=== PATIENT | male | born 1930 | race Caucasian/White ===

== ENCOUNTER 2017-02-07 17:40 | Inpatient (IN) | payer MEDICARE ==
[2017-02-07] MEDS ORDERED: BISACODYL 10 MG SUPP RECTAL PRN (18:00)
[2017-02-07] MEDS ORDERED: NALOXONE HCL 0.4 MG/ML AMP IV PRN (18:00)
[2017-02-07] MEDS ORDERED: ONDANSETRON HCL 4 MG/2 ML VIAL IVP PRN (18:00)
[2017-02-07] MEDS ORDERED: SENNOSIDES 8.6 MG TAB PO PRN (18:00)
[2017-02-07] MEDS ORDERED: MAGNESIUM HYDROXIDE SUSP 30 ML CUP PO PRN (18:00)
[2017-02-07] MEDS ORDERED: LACTULOSE SYRUP 20 GM/30 ML CUP PO PRN (18:00)
[2017-02-07] MEDS ORDERED: TEMAZEPAM 15 MG CAP PO PRN (18:00)
[2017-02-07] MEDS ORDERED: SODIUM CHLORIDE 0.9% FLUSH 10 ML FLUSH IV FLUSH PRN (18:00)
[2017-02-07] MEDS ORDERED: ACETAMINOPHEN 325 MG TAB PO PRN (18:00)
[2017-02-07 18:03] VITALS: BP 139/75; PULSE 78; RESP 18; TEMP 97.8; O2SAT 94
[2017-02-07] MEDS ORDERED: DEXTROSE 50% IN WATER 50 ML VIAL(D50) IV PRN (18:30)
[2017-02-07] MEDS ORDERED: GLUCAGON 1 MG/ML VIAL OTHER PRN (18:30)
--- NOTE | 2017-02-07 18:42 | HHI.HP ---
HPI Service [facility] Hospitalists Primary Care Physician Unknown Admission Diagnosis Diagnoses: Chief Complaint: atrial fibrillation with RVR Travel History International Travel<30 Days: No Contact w/Intl Traveler <30 Da: No History of Present Illness Written by Mounika Nieves, acting as scribe for Dr. Martínez on 02/07/17 at 18:28. This is an 86 yr old male with a PMHX significant for atrial fibrillation s/p AICD, on anticoagulation, hypertension, DM, BPH and hyperlipidemia who was recently admitted at [facility] with several days of left lower extremity swelling. He denied any subjective fever, chills, nausea or vomiting. He was found to have an abscess and underwent an I&D followed by IV antibiotics and was later transitioned to oral antibiotics. Cultures grew E Coli. He was subsequently found to be in atrial fibrillation with RVR and started on Cardizem drip. Patient was seen in consultation by Cardiology. Cardiology recommended possible ablation and patient has been transferred to [place] for ablation. Patient is asymptomatic presently, he denies any chest pain, shortness of breathing, lightheadedness dizziness. Patient niece who is a nurse stated that patient has always been asymptomatic when his atrial separation with RVR. She also stated that his left lower extremity wound looks a lot better. spoke to Dr. Farmer patient's awning erector over the phone and he stated that patient is scheduled for an ablation tomorrow afternoon and to continue his Plavix and tonight's dose of pradaxa but to hold morning dose. All other review of symptoms reviewed and negative. Review of Systems Except as stated in HPI: all other systems reviewed are Neg Past Family Social History Past Medical History Atrial fibrillation with RVR Cardiomyopathy CHF HTN BPH DM Hyperlipidemia Hypothyroidism CKD stage 3 Past Surgical History s/p AICD cardiac stent implant 2013 Hernia repair Reported Medications ASA 81mg one po daily Lipitor 10mg po daily Cefuroxime 250mg 2 tab po BID Vitamin D3 5000 units po every three days Plavix 75mg po daily Pradaxa 150mg 1 cap po BID Docusate 100mg one po prn constipation Tikosyn 125mcg po BID Lasix 40mg po daily Diovan/HCT 320/25mg 1 tab po daily Insulin Levothyroxine 25mcg 1 tab po daily Lorazepam 0.5mg po TID prn anxiety Metolazone 2.5mg 1 tab po daily Metoprolol 50mg po BID Multivitamin daily Zofran 4mg prn N/V Protonix 40mg po daily Lactinex 250mg po BID Tamsulosin 0.4mg po daily CoQ10 300mg po daily Allergies: Coded Allergies: No Known Allergies (Unverified , 02/07/17) Family History reviewed family history and not relevant to this admission. Social History Patient is former smoker. Physical Exam Vital Signs Vital Signs Date Time Temp Pulse Resp B/P Pulse Ox O2 Delivery O2 Flow Rate FiO2 02/07/17 18:03 97.8 78 18 139/75 94 Physical Exam GENERAL: This is a well-nourished, well-developed patient, in no apparent distress. SKIN: right lower extremity with open wound with changes in coloration suggesting stasis. HEAD: Atraumatic. Normocephalic. No temporal or scalp tenderness. EYES: Pupils equal round and reactive. Extraocular motions intact. No scleral icterus. No injection or drainage. ENT: Nose without bleeding, purulent drainage or septal hematoma. Throat without erythema, tonsillar hypertrophy or exudate. Uvula midline. Airway patent. NECK: Trachea midline. No JVD or lymphadenopathy. Supple, nontender, no meningeal signs. CARDIOVASCULAR: irregular rate and rhythm without murmurs, gallops, or rubs. RESPIRATORY: Clear to auscultation. Breath sounds equal bilaterally. No wheezes , rales, or rhonchi. GASTROINTESTINAL: Abdomen soft, non-tender, nondistended. No hepato-splenomegaly , or palpable masses. No guarding. MUSCULOSKELETAL: Extremities without clubbing, cyanosis, or edema. No joint tenderness, effusion, or edema noted. No calf tenderness. Negative Homans sign bilaterally. NEUROLOGICAL: Awake and alert. Cranial nerves II through XII intact. Motor and sensory grossly within normal limits. Five out of 5 muscle strength in all muscle groups. Normal speech. Assessment and Plan Assessment and Plan 86yo male transferred from [facility] with atrial fibrillation RVR for cardiac ablation. Atrial fibrillation with RVR - Consult Dr. Alcantara who is familiar with the patient and plans to do ablation procedure tomorrow -d/w Dr. Farmer over the phone patient's Link Fabric Machine Operator who was caring for patient in [facility] and stated to continue Plavix and give night dose of Pradaxa but to hold morning dose. - continuous cardiac telemetry - NPO after MN - Continue on Tikosyn - Continue on Metoprolol 50mg po BID Abscess/Cellulitis of the left leg - s/p I&D at [facility] and completed course of IV antibiotics -improving. -continue with daily wound changes. - Continue on po antibiotics Ceftin 500mg po BID DM - accuchecks - ISS -will hold Lantus at the moment since patient will be NPO. Hypothyroidism/cardiomyopathy/HTN/HLP/NSVTs/p AICD -resume home medication. DVT prophylaxis -Patient is on Pradaxa. Patient's niece, her nurse, nephew are at the bedside during the interview. Code Status Discussed with patient and his family members and his nurse who were present in regards to his CODE STATUS and patient stated that he wants to be a DO NOT RESUSCITATE. Discussed Condition With patient, his niece and nephew, his nurse Physician Certification 2 Midnight Certification Type: Admission for Inpatient Services Order for Inpatient Services The services are ordered in accordance with Medicare regulations or non- Medicare payer requirements, as applicable. In the case of services not specified as inpatient-only, they are appropriately provided as inpatient services in accordance with the 2-midnight benchmark. Estimated LOS (days): 2 2 days is the estimated time the patient will need to remain in the hospital, assuming treatment plan goals are met and no additional complications. Post-Hospital Plan: Home Mounika Nieves Feb 07, 2017 18:42
[2017-02-07 19:00] VITALS: PULSE 93
[2017-02-07] MEDS ORDERED: ASPI81CH CHEW (19:24)
[2017-02-07] MEDS ORDERED: PLAV75TA29 PO (19:24)
[2017-02-07] MEDS ORDERED: CEFU1TAB20 PO (19:24)
[2017-02-07] MEDS ORDERED: CHOL1CAP13 PO (19:24)
[2017-02-07] MEDS ORDERED: LIPI10TA PO (19:24)
[2017-02-07] MEDS ORDERED: FURO40TA PO (19:25)
[2017-02-07] MEDS ORDERED: PRAD150C PO (19:25)
[2017-02-07] MEDS ORDERED: TYLE325T PO (19:25)
[2017-02-07] MEDS ORDERED: DOCU100C PO (19:25)
[2017-02-07] MEDS ORDERED: DOFE125 PO (19:25)
[2017-02-07] MEDS ORDERED: METO2.5T PO (19:25)
[2017-02-07] MEDS ORDERED: LEVO25TA4 PO (19:25)
[2017-02-07] MEDS ORDERED: LORA-373 PO (19:25)
[2017-02-07] MEDS ORDERED: LANTINJ SQ (19:25)
[2017-02-07] MEDS ORDERED: TAMS0.4C4 PO (19:25)
[2017-02-07] MEDS ORDERED: LEVA0.637 INH (19:25)
[2017-02-07] MEDS ORDERED: MULT1TAB46 (19:25)
[2017-02-07] MEDS ORDERED: UBIQ1CAP4 (19:25)
[2017-02-07] MEDS ORDERED: SACC250C3 (19:25)
[2017-02-07] MEDS ORDERED: PROT40TA PO (19:25)
[2017-02-07] MEDS ORDERED: DIOV320T6 PO (19:25)
[2017-02-07] MEDS ORDERED: NOVOLOGP2 SQ (19:25)
[2017-02-07] MEDS ORDERED: ONDA4INJ2 IV PUSH (19:25)
[2017-02-07] MEDS ORDERED: METO50TA PO (19:25)
[2017-02-07] MEDS ORDERED: ONDANSETRON HCL 4 MG/2 ML VIAL IV PUSH PRN (19:45)
[2017-02-07] MEDS ORDERED: DOCUSATE SODIUM 100 MG CAP PO PRN (19:45)
[2017-02-07] MEDS ORDERED: LORazepam 0.5 MG TAB PO PRN (19:45)
[2017-02-07 20:00] VITALS: BP 129/78; PULSE 80; PULSE 83; RESP 16; TEMP 98; O2SAT 96
[2017-02-07] MEDS: RESP: ALBUTEROL 1.25 MG/3 ML NEB (SCH) NEB (20:00)
[2017-02-07 20:42] LABS: HEMATOCRIT 30.6 % (39.0-51.0); MEAN CELL VOLUME 95.3 FL (80.0-100.0); MEAN CORPUSCULAR HEMOGLOBIN 30.8 PG (27.0-34.0); MEAN CORPUSCULAR HGB CONC 32.3 % (32.0-36.0); PLATELET COUNT 185 TH/MM3 (150-450); RED BLOOD COUNT 3.21 MIL/MM3 (4.50-5.90); RED CELL DISTRIBUTION WIDTH 20.9 % (11.6-17.2); REVIEW FLAG FINAL; WHITE BLOOD COUNT 6.4 TH/MM3 (4.0-11.0)
[2017-02-07 21:00] VITALS: PULSE 74
[2017-02-07] MEDS ORDERED: DABIGATRAN ETEXILATE 150 MG CAP PO SCH (21:00)
[2017-02-07] MEDS: DOCUSATE SODIUM 50 MG/SENNA 8.6 MG TAB PO SCH (21:00)
[2017-02-07] MEDS: DOFETILIDE 125 MCG CAP PO SCH (21:00)
[2017-02-07 21:01] LABS: BICARBONATE 27.3 MEQ/L (21.0-32.0); MAGNESIUM 2.1 MG/DL (1.5-2.5); POTASSIUM 4.6 MEQ/L (3.5-5.1)
[2017-02-07 22:00] VITALS: PULSE 80
[2017-02-07] MEDS: METOPROLOL TARTRATE 50 MG TAB PO SCH (22:24)
[2017-02-07] MEDS: TAMSULOSIN HCL 0.4 MG CAP PO SCH (22:24)
[2017-02-07] MEDS: CEFUROXIME AXETIL 500 MG TAB PO SCH (22:24)
[2017-02-07] MEDS: SODIUM CHLORIDE 0.9% FLUSH 10 ML FLUSH IV FLUSH SCH (22:25)
[2017-02-07] MEDS: ATORVASTATIN 10 MG TAB PO SCH (22:25)
[2017-02-07] MEDS: INSULIN ASPART SUPPLEMENTAL SCALE SQ SCH (22:47)
[2017-02-07 23:00] VITALS: PULSE 66
[2017-02-08] VITALS (23 sets, daily range): BP systolic 120–152; BP diastolic 69–91; PULSE 64–99; RESP 16–22; TEMP 97.9–98.5; O2SAT 93–96
[2017-02-08 05:33] LABS: AUTOMATED NEUTROPHIL # 3.7 TH/MM3 (1.8-7.7); BASOPHIL # 0.1 TH/MM3 (0-0.2); BASOPHIL % 1.5 % (0.0-2.0); EOSINOPHIL # 0.1 TH/MM3 (0-0.4); EOSINOPHIL % 1.7 % (0.0-4.0); HEMATOCRIT 29.3 % (39.0-51.0); HEMO FLAGS DIFF FINAL; LYMPH % 25.3 % (9.0-44.0); LYMPHOCYTE # 1.4 TH/MM3 (1.0-4.8); MEAN CELL VOLUME 94.9 FL (80.0-100.0); MEAN CORPUSCULAR HEMOGLOBIN 31.6 PG (27.0-34.0); MEAN CORPUSCULAR HGB CONC 33.2 % (32.0-36.0); MONO % 6.6 % (0.0-8.0); NEUT % 64.9 % (16.0-70.0); PLATELET COUNT 174 TH/MM3 (150-450); RED BLOOD COUNT 3.09 MIL/MM3 (4.50-5.90); RED CELL DISTRIBUTION WIDTH 20.4 % (11.6-17.2); WHITE BLOOD COUNT 5.7 TH/MM3 (4.0-11.0)
[2017-02-08 06:01] LABS: ALT (GPT) 28 U/L (12-78); ANION GAP 9 MEQ/L (5-15); AST (GOT) 27 U/L (15-37); BICARBONATE 27.2 MEQ/L (21.0-32.0); BLOOD UREA NITROGEN 19 MG/DL (7-18); CHLORIDE 100 MEQ/L (98-107); GLOMERULAR FILTRATION RATE 59 ML/MIN (>89); SODIUM (NA) 136 MEQ/L (136-145)
[2017-02-08 06:04] LABS: ALKALINE PHOSPHATASE 128 U/L (45-117); TOTAL BILIRUBIN ADULT 0.9 MG/DL (0.2-1.0)
[2017-02-08] MEDS: INSULIN ASPART SUPPLEMENTAL SCALE SQ SCH ×4 (07:00→22:02)
[2017-02-08] MEDS: LEVOTHYROXINE SODIUM 25 MCG TAB PO SCH (07:01)
[2017-02-08] MEDS: RESP: ALBUTEROL 1.25 MG/3 ML NEB (SCH) NEB ×4 (07:50→20:25)
[2017-02-08] MEDS: ASPIRIN 81 MG CHEW TAB CHEW SCH (08:39)
[2017-02-08] MEDS: CLOPIDOGREL 75 MG TAB PO SCH (08:39)
[2017-02-08] MEDS: DOCUSATE SODIUM 50 MG/SENNA 8.6 MG TAB PO SCH ×2 (08:40→21:00)
[2017-02-08] MEDS: CEFUROXIME AXETIL 500 MG TAB PO SCH ×2 (08:44→21:54)
[2017-02-08] MEDS: METOLAZONE 2.5 MG TAB PO SCH (08:44)
[2017-02-08] MEDS: FUROSEMIDE 40 MG TAB PO SCH (08:44)
[2017-02-08] MEDS: METOPROLOL TARTRATE 50 MG TAB PO SCH ×2 (08:44→21:55)
[2017-02-08] MEDS: PANTOPRAZOLE SOD 40 MG DELAYED RELEASE TAB PO SCH (08:44)
[2017-02-08] MEDS: CHOLECALCIFEROL (VIT D3) 5000 UNIT CAP PO SCH (08:44)
[2017-02-08] MEDS: VALSARTAN 160 MG TAB PO SCH (08:45)
[2017-02-08] MEDS: SODIUM CHLORIDE 0.9% FLUSH 10 ML FLUSH IV FLUSH SCH ×2 (08:45→21:55)
[2017-02-08] MEDS: DOFETILIDE 125 MCG CAP PO SCH (08:45)
[2017-02-08] MEDS ORDERED: CLOPIDOGREL 75 MG TAB PO SCH (09:00)
--- NOTE | 2017-02-08 09:46 | HHI.PR ---
Subjective Remarks Follow-up for atrial fibrillation with RVR with possible ablation today Patient stated that he saw Dr. Alcantara this morning and that he wants a despatch clerk to see him before doing the procedure. Patient stated that he has pulmonary fibrosis. Denies any shortness of breathing, chest pain, palpitation, lightheadedness or dizziness. He also denies cough. Patient stated that he is on 2 L of oxygen at home. Objective Vitals Vital Signs Date Time Temp Pulse Resp B/P Pulse Ox O2 Delivery O2 Flow Rate FiO2 02/08/17 08:00 71 02/08/17 08:00 98.5 96 16 137/72 93 02/08/17 06:00 84 02/08/17 05:00 70 02/08/17 04:00 86 02/08/17 03:00 72 02/08/17 02:00 68 02/08/17 01:00 68 02/08/17 00:22 96 02/08/17 00:00 64 02/07/17 23:00 66 02/07/17 22:00 80 02/07/17 21:00 74 02/07/17 20:00 80 02/07/17 20:00 98.0 83 16 129/78 96 02/07/17 19:00 93 02/07/17 18:03 97.8 78 18 139/75 94 Result Diagram: 02/08/17 0410 02/08/17 0418 Objective Remarks GENERAL: in NAD CARDIOVASCULAR: Regular rate and rhythm without murmurs, gallops, or rubs. RESPIRATORY: B/L lower lobe crackles. otherwise no wheezing or rhonchi. No accessory muscle use. GASTROINTESTINAL: Abdomen soft, non-tender, nondistended. MUSCULOSKELETAL: No cyanosis, or edema. BACK: Nontender without obvious deformity. No CVA tenderness. SKIN: LLE lateral ankle + wound yellowish discharge. Medications and IVs Current Medications Sodium Chloride (NS Flush) 2 ml UNSCH PRN IV FLUSH FLUSH AFTER USING IV ACCESS ; Start 02/07/17 at 18:00 Sodium Chloride (NS Flush) 2 ml BID IV FLUSH Last administered on 02/08/17t 08: 45; Start 02/07/17 at 21:00 Acetaminophen (Tylenol) 650 mg Q4H PRN PO TEMP > 100.4; Start 02/07/17 at 18:00 Ondansetron HCl (Zofran Inj) 4 mg Q6H PRN IVP NAUSEA OR VOMITING; Start at 18:00; Stop 02/07/17 at 19:59; Status DC Temazepam (Restoril) 15 mg HS PRN PO INSOMNIA; Start 02/07/17 at 18:00 Naloxone HCl (Narcan Inj) 0.4 mg UNSCH PRN IV SEE LABEL COMMENTS; Start at 18:00 Senna/Docusate Sodium (Carina-Colace) 1 tab BID PO ; Start 02/07/17 at 21:00 Magnesium Hydroxide (Milk Of Magnesia Liq) 30 ml Q12H PRN PO MILD - MODERATE CONSTIPATION; Start 02/07/17 at 18:00 Sennosides (Senokot) 17.2 mg Q12H PRN PO MODERATE - SEVERE CONSTIPATION; Start 02/07/17 at 18:00 Bisacodyl (Dulcolax Supp) 10 mg DAILY PRN RECTAL SEVERE CONSITIPATION; Start at 18:00 Lactulose (Lactulose Liq) 30 ml DAILY PRN PO SEVERE CONSITIPATION; Start at 18:00 Dextrose (D50w (Vial) Inj) 50 ml UNSCH PRN IV HYPOGLYCEMIA-SEE COMMENTS; Start 02/07/17 at 18:30 Glucagon (Glucagon Inj) 1 mg UNSCH PRN OTHER HYPOGLYCEMIA-SEE COMMENTS; Start 02/07/17 at 18:30 Insulin Aspart (NovoLOG SUPPLEMENTAL SCALE) 1 ACHS SLIDING SCALE SQ Last administered on 02/08/17 07:00; Start 02/07/17 at 21:00 Aspirin (Aspirin Chew) 81 mg DAILY CHEW ; Start 02/08/17 at 09:00 Atorvastatin Calcium (Lipitor) 10 mg HS PO Last administered on 02/07/17 22:25 ; Start 02/07/17 at 21:00 Cefuroxime Axetil (Ceftin) 500 mg BID PO Last administered on 02/08/17 08:44; Start 02/07/17 at 21:00 Cholecalciferol (Vitamin D3) 5,000 units DAILY PO Last administered on 08:44; Start 02/08/17 at 09:00 Clopidogrel Bisulfate (Plavix) 75 mg DAILY PO ; Start 02/08/17 at 09:00; Stop at 09:00; Status DC Dabigatran (Pradaxa) 150 mg BID PO ; Start 02/07/17 at 21:00; Status Hold Docusate Sodium (Colace) 100 mg BID PRN PO CONSTIPATION; Start 02/07/17 at 19: 45 Dofetilide (Tikosyn) 125 mcg BID PO Last administered on 02/08/17 08:45; Start 02/07/17 at 21:00; Status Hold Furosemide (Lasix) 40 mg DAILY PO Last administered on 02/08/17 08:44; Start 02/08/17 at 09:00 Levothyroxine Sodium (Synthroid) 25 mcg DAILY@06 PO Last administered on 07:01; Start 02/08/17 at 06:00 Lorazepam (Ativan) 0.5 mg Q8H PRN PO ANXIETY; Start 02/07/17 at 19:45 Metolazone (Zaroxolyn) 2.5 mg DAILY PO Last administered on 02/08/17 08:44; Start 02/08/17 at 09:00 Metoprolol Tartrate (Lopressor) 50 mg BID PO Last administered on 02/08/17 08: 44; Start 02/07/17 at 21:00 Ondansetron HCl (Zofran Inj) 4 mg Q4H PRN IV PUSH N/V; Start 02/07/17 at 19:45 Pantoprazole Sodium (Protonix) 40 mg DAILY PO Last administered on 02/08/17 08 :44; Start 02/08/17 at 09:00 Tamsulosin HCl (Flomax) 0.4 mg HS PO Last administered on 02/07/17 22:24; Start 02/07/17 at 21:00 Albuterol Sulfate (Albuterol Neb) 1.25 mg TID NEB NEB ; Start 02/07/17 at 20:00 Valsartan (Diovan) 320 mg DAILY PO Last administered on 02/08/17 08:45; Start 02/08/17 at 09:00 Clopidogrel Bisulfate (Plavix) 75 mg DAILY PO ; Start 02/08/17 at 09:00 Patient Own Medication PT OWN MED: TIKOSYN (DOFETILI... BID PO ; Start 02/08/17 at 21:00 A/P Assessment and Plan 86yo male transferred from [facility] with atrial fibrillation RVR for cardiac ablation. Atrial fibrillation with RVR - Pending consult report from Dr. Alcantara. Per patient Dr. Alcantara wants pulmonary clearance before deciding an ablation. -Pradaxa was held this morning anticipating possible ablation this afternoon as stated by Dr. Farmer. Will wait for consult to determine when to restart pradaxa. - continuous cardiac telemetry - Continue on Tikosyn and Metoprolol 50mg po BID Abscess/Cellulitis of the left leg - s/p I&D at [facility] and completed course of IV antibiotics -improving. -continue with daily wound changes. Will consult wound care. - Continue on po antibiotics Ceftin 500mg po BID chronic respiratory failure on 2 L of oxygen at home -due to pulmonary fibrosis -Electrical Maintenance Supervisor consulted for pulmonary clearance. DM - On SSI -At home patient takes Lantus 40 units every morning. -Blood sugars running in the 200s. Will start Levemir at 10 units twice a day and adjust accordingly.. Hypothyroidism/cardiomyopathy/HTN/HLP/NSVTs/p AICD -continue home medication. DVT prophylaxis -Patient is on Pradaxa. Dealt with multiple family members at the bedside. Ping Martínez MD Feb 08, 2017 09:46
[2017-02-08] MEDS: INSULIN DETEMIR 100 UNITS/ML VIAL SQ SCH ×2 (10:24→21:00)
--- NOTE | 2017-02-08 12:34 | MB ---
cc: KISHA BHATTI MD, HANSCY M.D. DATE OF CONSULTATION 02/08/2017 REASON FOR CONSULTATION Atrial fibrillation with fast ventricular response, unable to control with medication. Recurrent defibrillatory shock. HISTORY OF PRESENT ILLNESS Mr. Gillespie is an 86-year-old gentleman with a history of congestive heart failure, cardiomyopathy. He had a previous defibrillator implanted. The gentleman is on multiple anticoagulation, is on Plavix, aspirin and Pradaxa. His heart rate is very difficult to control. He was recently admitted at [facility]. Dr. Recinos called me for evaluation and management. The chart was reviewed. The patient was evaluated. ALLERGIES AMIODARONE. PAST MEDICAL HISTORY The patient has pulmonary fibrosis. SOCIAL HISTORY Negative for smoking and drinking. FAMILY HISTORY Noncontributory to his current medical condition. MEDICATIONS 1. He is on acetaminophen. 2. He is on aspirin. 3. Levoxyl. 4. Lipitor or. 5. Metoprolol. 6. Plavix. 7. Pradaxa. 8. Tikosyn. 9. Tylenol. 10. Zosyn. REVIEW OF SYSTEMS Currently the gentleman has no chest pain, no chest discomfort. He has some shortness of breath but no fever. PHYSICAL EXAM GENERAL: Alert, fully oriented. VITAL SIGNS: His blood pressure is 137/72, pulse around 110 on the telemetry, irregular, respiratory rate 20. LUNGS: Decreased left basal ventilation. CARDIOVASCULAR: S1, S2. Tachycardia, irregular. ABDOMEN: Soft. No mass. LOWER EXTREMITIES: There is no edema. There is a bandage on a wound on the left leg. ELECTROCARDIOGRAM Shows atrial fibrillation, fast ventricular response. LABORATORY DATA Hemoglobin is 9.7, white blood cell count 5.7, potassium 4, creatinine 1.19, magnesium 2.1. ASSESSMENT AND RECOMMENDATIONS Mr. Gillespie has atrial fibrillation rate unable to be controlled despite multiple medication. The gentleman developed in the past pulmonary fibrosis because of amiodarone. He is currently on Tikosyn and Cardizem . Despite that, the heart rate is very high. He is also on metoprolol. My recommendation is ablation. The risks, the nature and the benefit of the procedure are clearly stated to him and his family. The risks include pneumothorax, cardiac perforation, stroke and even . The patient understood and agreed to proceed. The patient and family also understand that the gentleman may need at least three procedures because of his longstanding atrial fibrillation. I am going to keep the gentleman n.p.o. I am going to modify his Tikosyn; I am going to increase it to 250 mcg twice a day. Ablation will be performed in the afternoon. MD VARUN Lynch/SERGIO /11:21 AM /12:22 PM
--- NOTE | 2017-02-08 16:10 | MB ---
cc: JUDY GEE DATE OF CONSULTATION: 02/08/[address] Alcantara. REASON FOR CONSULTATION Pulmonary management and preop clearance. HISTORY OF PRESENT ILLNESS Mr. Gillespie is a pleasant 86-year-old male who has a longstanding history of atrial fibrillation. He was on amiodarone and he developed pulmonary fibrosis. Amiodarone was discontinued and he is on Tikosyn. The patient was admitted at [facility] with complaint of swelling on the left leg. He was found to have a infection in the left leg. He had incision and drainage done. He was found to be in atrial fibrillation with rapid ventricular rate. He was put on Cardizem drip. He did not get better. The patient was seen by Dr. Recinos who consulted Dr. Alcantara for ablation. The patient is sent over here for ablation. PAST MEDICAL HISTORY 1. He has a longstanding history of atrial fibrillation. 2. History of congestive heart failure. 3. Cardiomyopathy, ejection fraction around 15-20%, as per his niece who is a nurse. 4. History of AICD placement. 5. History of arthroscopy of the knee. 6. BPH. 7. Diabetes mellitus. 8. Hypertension. 9. Chronic kidney disease. 10. History of hernia repair. 11. History of coronary disease status post stent placement. MEDICATION He is currently takin. Tikosyn 250 mg twice a day. 2. Insulin 10 units twice a day. 3. Aspirin 81 mg a day. 4. Lasix 40 mg a day. 5. Zaroxolyn 2.5 mg daily. 6. Protonix 40 mg a day. 7. Diovan 320 mg a day. 8. Plavix 75 mg daily. 9. Levothyroxine 25 mcg a day. 10. Atorvastatin 10 mg a day. 11. Ceftin 500 mg twice a day. 12. Metoprolol 50 mg twice a day. 13. Flomax 0.4 mg a day. 14. Albuterol/Atrovent nebulizer treatment. 15. Lorazepam as needed. ALLERGIES Allergic to AMIODARONE. SOCIAL HISTORY He lives with his shop welder. He has a brief history of smoking which he quit in 1964. Drinks rarely but he has quit drinking after his heart problem. He worked in the [employer] department in a [employer]. FAMILY HISTORY Has four children, one son has CABG. REVIEW OF SYSTEMS The patient is barely able to walk inside the house going from the room to the kitchen, he starts having shortness of breath. He uses oxygen 2-3 liters nasal cannula most of the time. No seizure, stroke or epilepsy. No malignancy. No DVT or pulmonary embolism. PHYSICAL EXAMINATION GENERAL: A pleasant elderly male, not in acute distress at rest. VITAL SIGNS: Blood pressure 123/75, heart rate 81, respirations 16, temperature 98.4. HEENT: Pupils are equal and reactive to light. He had bilateral cataract surgery done. Oral mucosa, nasal mucosa normal. NECK: JVP not raised. CHEST: Air entry equal bilaterally. He has inspiratory rales. CVS: S1, S2, irregular. ABDOMEN: Soft, nontender, nondistended. Bowel sounds are present. EXTREMITIES: He has left leg incision and drainage wound. RESIDENT MEDICAL OFFICER: Alert and oriented x 3. No focal deficit. IMPRESSION 1. Pulmonary fibrosis with dyspnea. His functional status is poor. 2. Atrial fibrillation with rapid ventricular rate. 3. Coronary artery disease status post stent placement. 4. Cardiomyopathy status post AICD placement. 5. Diabetes mellitus. 6. Hypertension. PLAN I discussed with the patient and his daughter, niece and other family members at the bedside and explained that the patient will be moderate to high risk of procedure and need for ventilator dependent based on his poor functional status and underlying pulmonary fibrosis. Currently he is on 2-3 liters nasal cannula. He will be maintained on supplemental oxygen. I have discussed with Dr. Alcantara that the patient and his family is willing to take the risk of pulmonary complication and they want to proceed with ablation. Dr. Alcantara is going to schedule him for ablation. Further treatment will depend on the course in the hospital. Thank you Dr. Alcantara for this consultation. MD RISHABH Zavaleta/REEMA /2:52 PM /3:27 PM
[2017-02-08 16:17] LABS: INTERNATIONAL NORMALIZED RATIO 1.1 RATIO; PROTHROMBIN TIME - PATIENT 12.5 SEC (9.8-11.6)
[2017-02-08] MEDS ORDERED: PROPOFOL 200 MG/20 ML AMP IV ONE (16:51)
[2017-02-08] MEDS ORDERED: SODIUM CHLORID 0.9% 500 ML BAG IV ONE (16:51)
[2017-02-08] MEDS ORDERED: LEVOFLOXACIN 500 MG PREMIX INJ 100 ML IV ONE (17:13)
[2017-02-08] MEDS ORDERED: HEPARIN-NS/PF INJ 500 ML ONE (17:13)
[2017-02-08] MEDS ORDERED: HEPARIN-D5W INJ 250 ML ONE (17:21)
[2017-02-08] MEDS ORDERED: PROTAMINE SULFATE 50 MG/5 ML VIAL ONE (17:21)
[2017-02-08] MEDS ORDERED: HEPARIN SODIUM - IV 10,000 UNITS/10 ML VIAL ONE (17:21)
[2017-02-08] MEDS ORDERED: ISOPROTERENOL HCL 1 MG/5 ML AMP ONE (17:21)
[2017-02-08] MEDS ORDERED: fentaNYL CITRATE 250 MCG/5 ML AMP ONE (19:38)
[2017-02-08] MEDS ORDERED: SODIUM CHLOR 0.9% 250 ML INJ 250 ML IV PRN (19:45)
[2017-02-08] MEDS ORDERED: METOCLOPRAMIDE HCL 10 MG/2 ML VIAL IV PRN (19:45)
[2017-02-08] MEDS ORDERED: LORazepam 2 MG/ML VIAL IV PRN (19:45)
[2017-02-08] MEDS ORDERED: BACITRACIN OINT 0.9 GM PKT TOP ONE (19:45)
[2017-02-08] MEDS ORDERED: ATROPINE SULFATE 1 MG/ML VIAL IV PRN (19:45)
[2017-02-08] MEDS ORDERED: ONDANSETRON HCL 4 MG/2 ML VIAL IV PRN (19:45)
[2017-02-08] MEDS ORDERED: LIDOCAINE HCL 1% 50 ML VIAL INFIL PRN (19:45)
--- NOTE | 2017-02-08 19:50 | CATHPROC ---
[facility] HIS Report Study Information Study Number Admission Scheduled Start Study Start [id number] Feb 07 2017 5:57PM 02/08/2017 Feb 08 2017 2:53PM [place] Service Electrophysiology Study Admit Source Facility Department Other [facility] - Relationship Banker Physician and Clinical Staff Initial Deisy Gaspar Casting House Worker Jerry Castelan,RT(R) Other Anesthesia, COMPUTER PROGRAMMING MANAGER Recorder Lolis Jones,SAIDA Scrub Ayala Reynolds RCIS Procedures Performed Procedure Location (Site) Vessel Name Ablation Procedure Cardioversion ICE CATHETER INSERT RA Atruim RF Ablation LT. ATRIUM LT. ATRIUM Equipment Time Shift Supervisor Film Processing Description Size Mfg Part Number Used/Scraped NEEDLE, TRANSSEPTAL NRG 98 17:47 [facility] [id number] Used C1 [employer]/ EP 17:47 KIT, TRANSDUCER / AFIB [id number] Used PACER [id number] CATHETER, TACTICATH ABLAT BUNDLE 17:47 BUND[facility] Used 65 BUNDLE *[id number] BUNDLE [id number] CATHETER, FR7 OPTIMA SPIRAL 17:47 BUNDLE-[facility] FR7 *[id number]- Used BUNDLE BUNDLE [id number] 17:47 BUND[facility] CATHETER, JSN, QUAD BUNDLE FR 5 *[id number]- Used BUNDLE [id number] 17:47 BUNDLE-[facility] CATHETER, JSN, QUAD BUNDLE FR 5 *[id number]- Used BUNDLE [id number] SET, [place]OL [place] TUBING 17:47 BUNDLE-[facility] *[id number]- Used BUNDLE BUNDLE SHEATH, FR8.5 STEERABLE SM 17:47 BUNDLE-[facility] 71CM [id number] Used 71CM BUNDLE COVER, TRANSDUCER CABLE 17:47 CONE Transpera [id number] Used ACUNAV 17:47 CORDIS/PACER SHEATH, FR10 SIRISHA 11CM FR 10 [id number] Used 17:47 CORDIS/PACER SHEATH, FR9 SIRISHA 11CM FR 9 [id number] Used [id number] 17:47 MEDLINE IND[employer]RIES PACK, CCL CUSTOM * Used *[id number] 17:47 MEDLINE PACER MONTOYA, LIMB * 0450 *[id number] Used [id number] 17:47 [employer] MEDICAL SHEATH, FR4.5 PRELUDE 11CM FR 4.5 Used [id number] 17:47 NAMIC TUBING, HIGH PRESSURE 48" 48" Used *[id number] 17:47 NAMIC TUBING, HIGH PRESSURE 48" 48" Used *[id number] 17:48 NAMIC TUBING, HIGH PRESSURE 48" 48" Used *[id number] 17:47 MATHIS MEDICAL BLANKET,WARM AIR CCL * Used *[id number] 17:47 [facility] MEDICAL ELECTRODE KIT, GAVI X SURFACE * [id number] Used 17:47 [facility] MEDICAL SHEATH, EPS, FR6 FAST CATH FR [id number] Used 17:47 [facility] MEDICAL SHEATH, EPS, FR7 FAST CATH FR [id number] Used 17:47 [facility] MEDICAL SHEATH, EPS, FR8 FAST CATH FR 8 [id number] Used CATHETER, ACUNAV FR10 ICE [id number] 18:02 KESHA FR 10 Used (KESHA) *[id number] [facility] PAD, ELECTROSURGICAL 17:47 * [id number] *[id number] Used SURGICAL GROUNDING (BLUE) History: Allergies Allergy Reaction No Known Allergies Amiodarone Pulmonary Fibrosis History: Risk Factors Hypertension Dyslipidemia Yes Yes Prior PCI Prior PCIDate Yes 07/12/2013 Diabetes Yes Labs Hgb (g/dl) Hct (%) RBC (MIL/MM3) WBC (l/cumm) Platelets (thousands) 11.60-17.00 35.00-51.00 4.00-5.90 4.00-11.00 150.00-450.00 9.0 29 3.9 5.7 174 Glucose (mg/dl) BUN (mg/dl) Creatinine (mg/dl) BUN:Creatinine (1:x) 74.00-106.00 7.00-18.00 0.50-1.30 10.00-20.00 210 19 1.2 15.8 Na (meq/l) K (meq/l) 136.00-145.00 3.50-5.10 136 4 INR (PTT:PT) 0.90-1.10 1.1 Medication Medication Total Dose (Bolus/Oral) Medication Total Dosage/Unit 1% XYLOCAINE 40 mL HEPARIN 22804 units PROTAMINE 40 mg Medications (Bolus/Oral) Medication Time Given Dosage/Unit Administered By Reason 1% XYLOCAINE 02/08/2017 5:56:02 PM 20 mL Deisy Alcantara 20 mL 1% XYLOCAINE given in lab by Deisy Alcantara in Left Groin via Subcutaneous. Ordered by Marko Alcantara 1% XYLOCAINE 02/08/2017 6:00:20 PM 20 mL Deisy Alcantara As per physicians esteban bal order 20 mL 1% XYLOCAINE given in lab by Deisy Alcantara in Right Groin via Subcutaneous. Ordered by Leti Alcantara. Reason: As per physicians verbal order. HEPARIN 02/08/2017 6:06:57 PM 88191 units Anesthesia, COMPUTER PROGRAMMING MANAGER As per physicians v erbal order 48328 units HEPARIN given in lab by Anesthesia, COMPUTER PROGRAMMING MANAGER in Right Antecubital via Peripheral IV. Ordered by Deisy Alcantara. Reason: As per physicians verbal order. HEPARIN 02/08/2017 6:19:58 PM 3000 units Anesthesia, COMPUTER PROGRAMMING MANAGER As per physicians ve rbal order 3000 units HEPARIN given in lab by Anesthesia, COMPUTER PROGRAMMING MANAGER in Right Antecubital via Peripheral IV. Ordered b y Deisy Alcantara. Reason: As per physicians verbal order. PROTAMINE 02/08/2017 7:34:29 PM 40 mg Anesthesia, COMPUTER PROGRAMMING MANAGER As per physicians esteban bal order 40 mg PROTAMINE given in lab by Anesthesia, COMPUTER PROGRAMMING MANAGER via Peripheral IV. Ordered by Deisy Alcantara. Reason: As per physicians verbal order. Medication (Drip) Medication Time Given Dosage/Unit Concentration/Unit Diluent (ml) Solution HEPARIN DRIP 02/08/2017 6:20:18 PM 1000 units/hr 78115 units 250 D5W 1000 units/hr HEPARIN DRIP given in lab by Anesthesia, COMPUTER PROGRAMMING MANAGER in Right Antecubital via Peripheral IV. P ump/Drip Flow = 10 ml/hr [place] [address] units in 250 ml. Ordered by Deisy Alcantara. Reason: As per physicians verbal or amanda. LEVAQUIN 02/08/2017 5:35:00 PM 100 mL/hr 500 100 NaCl .9 100 mL/hr LEVAQUIN given by Anesthesia, COMPUTER PROGRAMMING MANAGER via Peripheral IV. Pump/Drip Flow = 0 ml/hr using NaCl . 9 with a concentration of 500 in 100 ml. Ordered by Deisy Alcantara. Reason: As per physicians verbal order. laguerre insertion Initial Case Assessment Cardiovascular HR Rhythm NIBP Chest Pain 84 af 147/64 0 Edema Present Skin color Skin None Normal Warm Dry Circulatory - Right Pulses Dorsalis Pedis 3 Scale (0,1,2,3,4,d) Circulatory - Left Pulses Dorsalis Pedis 2 Scale (0,1,2,3,4,d) Circulatory - Lower Extremities Color Lower Right Color Lower Left Normal Normal Neurological State Oriented to time-place- Alert Moves all extremities person Respiration - General Respiration Rate SpO2 (%) (B/min) 20 95 Final Case Assessment Cardiovascular HR Rhythm NIBP Chest Pain 85 sr 110/77 0 Edema Present Skin color Skin None Normal Warm Circulatory - Right Pulses Dorsalis Pedis 3 Scale (0,1,2,3,4,d) Circulatory - Left Pulses Dorsalis Pedis 2 Scale (0,1,2,3,4,d) Circulatory - Lower Extremities Color Lower Right Color Lower Left Normal Normal Neurological State Restless Moves all extremities Respiration - General Respiration Rate SpO2 (%) O2 (lpm) (B/min) 18 99 10 Chronological Log Time Study Chronological Log 16:51:31 Patient arrived via Bed. 16:51:32 Patient Name, D.O.B, / Armband Verified By R.N. 16:51:33 Consent signed by the physician and the patient and verified by the Relationship Banker staff. 16:51:34 Pre-op and post- op instructions given; patient acknowledges understanding of instructions. 16:51:35 Verbal Stimulation=2 Physical Stimulation=2 Airway=2 Respiration=2 TOTAL=8. (0=absent, 1=li mited, 2=present) 16:51:37 Patient has been NPO for More than 6Hrs. 16:51:38 Skin Breakdown- 16:51:40 Patient Warmer Placed on the Table. 16:51:53 Carolyn Prominences Protected 16:51:54 A # 20 IV was noted in the Forearm (left). Grade = 0 0.9ns kvo 16:51:55 A # 20 IV was noted in the Forearm (right). Grade = 0 0.9ns kvo 16:52:01 History and physical on the chart or being dictated. Assessment: Initial Case, HR=84 BPM, Rhythm=af, USAB=876/64 mmhg, Chest Pain=0, Edema=None, Col or=Normal, Skin = Warm, Dry Right Pulses: Shai Ped=3 Left Pulses: Shai Ped=2 17:15:50 Lower Right Extremities: Color=Normal Lower Left Extremities: Color=Normal Neurological: State=Alert, Ox3, COLLAZO Respiration: Resp=20 B/min, SpO2=95 % 17:17:56 [facility] rep present. Defibrilator off. [id number] per md orders. 17:22:44 Table restraints applied according to hospital policy 17:25:58 Anesthesiologist present for intubation. 14 fr laguerre inerted w/o difficulty. Clear yellow u rine obtianed. 17:32:32 Bilateral groins prepped with 2% chlorhexidine, and with a 3 min. waiting time. 17:34:33 MD paged 100 mL/hr LEVAQUIN given by Anesthesia, COMPUTER PROGRAMMING MANAGER via Peripheral IV. Pump/Drip Flow = 0 ml/hr using NaCl .9 with a 17:35:00 concentration of 500 in 100 ml. Ordered by Deisy Alcantara. Reason: As per physicians verbal orde r. laguerre insertion 17:40:40 Reference ECG taken 17:45:06 MD arrived. Time Out. Correct patient, procedure, procedure equipment, site and side verified with physicia n present. Time 17:46:00 concurred by MD, individual staff and COMPUTER PROGRAMMING MANAGER. Time Out #2 - Consents verified, patient in correct position, all results are labled and displa yed, safety precautions 17:46:27 taken, antibiotics administered. Time out concurred by MD, individual staff and COMPUTER PROGRAMMING MANAGER in procedu re 17:46:41 Case Start 17:46:58 Iraj in progress 17:52:08 Anesthesia at bedside. Assumes care of patient. Jany 17:54:54 Iraj complete. 17:56:02 20 mL 1% XYLOCAINE given in lab by Deisy Alcantara in Left Groin via Subcutaneous. Ordered by Deisy Alcantara. 17:56:14 Vascular access was obtained in the Fem Vein (left). 17:56:16 Vascular access was obtained in the Fem Vein (left). 17:56:20 Vascular access was obtained in the Fem Vein (left). 17:56:27 Vascular access was obtained in the Fem Art (left). A SHEATH, FR4.5 PRELUDE 11CM FR 4.5 was advanced into the Fem Art (left) using the Modified Remedios margaret technique. 17:56:40 0.9ns pressure bag connected. 17:56:54 A SHEATH, EPS, FR6 FAST CATH FR 6 was advanced into the Fem Vein (left) using the Modified Seldinger technique. 17:57:09 A SHEATH, EPS, FR7 FAST CATH FR 7 was advanced into the Fem Vein (left) using the Modified Seldinger technique. 17:57:19 A SHEATH, FR10 SIRISHA 11CM FR 10 was advanced into the Fem Vein (left) using the Modified S eldinger technique. 20 mL 1% XYLOCAINE given in lab by Deisy Alcantara in Right Groin via Subcutaneous. Ordered by Deisy Jean. 18:00:20 Reason: As per physicians verbal order. 18:00:42 Vascular access was obtained in the Fem Vein (right). 18:00:54 A SHEATH, EPS, FR8 FAST CATH FR 8 was advanced into the Fem Vein (right) using the Percutan eous technique. A CATHETER, JSN, QUAD BUNDLE FR 5 was advanced vis Fem Vein (left) and placed in the CS. Placem ent was visually 18:01:22 confirmed under fluoroscopy. A CATHETER, JSN, QUAD BUNDLE FR 5 was advanced vis Fem Vein (left) and placed in the HIS. Place ment was 18:01:36 visually confirmed under fluoroscopy. 18:02:53 CATHETER, ACUNAV FR10 ICE (CTIC [place]) FR 10 Was Postioned. A SHEATH, FR8.5 STEERABLE SM 71CM BUNDLE 71CM was exchanged in the Fem Vein (right). This was n ecessary in 18:03:13 order for catheter support. 18:04:04 Onaway needle inserted into steerable sheath. 19727 units HEPARIN given in lab by Anesthesia, COMPUTER PROGRAMMING MANAGER in Right Antecubital via Peripheral IV. Or dered by Maricruz 18:06:57 Deisy. Reason: As per physicians verbal order. 18:15:00 Activated Clotting Time Drawn 18:16:00 Transseptal. Onaway needle removed. A CATHETER, FR7 OPTIMA SPIRAL BUNDLE FR7 was advanced vis Fem Vein (right) and placed in the LA . Placement 18:17:00 was visually confirmed under fluoroscopy. 18:17:00 Mapping in progress. A CATHETER, TACTICATH ABLAT 65 BUNDLE was advanced vis Fem Vein (right) and placed in the LA. P lacement was 18:19:15 visually confirmed under fluoroscopy. 18:19:41 ACT (Normal Range 90-180) = 295 18:19:50 RF Ablation of the LT. ATRIUM with a CATHETER, TACTICATH ABLAT 65 BUNDLE. 3000 units HEPARIN given in lab by Anesthesia, COMPUTER PROGRAMMING MANAGER in Right Antecubital via Peripheral IV. Ord ered by Deisy Alcantara. 18:19:58 Reason: As per physicians verbal order. 1000 units/hr HEPARIN DRIP given in lab by Anesthesia, COMPUTER PROGRAMMING MANAGER in Right Antecubital via Peripheral IV. Pump/Drip Flow = 18:20:18 10 ml/hr [place] [address] units in 250 ml. Ordered by Deisy Alcantara. Reason: As per physicians verbal order. 18:27:00 Activated Clotting Time Drawn 18:33:36 ACT (Normal Range 90-180) = 365 18:59:00 Activated Clotting Time Drawn 19:03:22 ECG rhythm of ~RHYTHMS~ noted. Patient cardioverted at 200 joules. Incomplete Success synch . A tach 19:03:49 ECG rhythm of ~RHYTHMS~ noted. Patient cardioverted at 300 joules. Success synch. A tach 19:05:35 EPS in progress 19:07:27 ACT (Normal Range 90-180) = 346 19:08:00 RF Ablation of the LT. ATRIUM with a eps. 19:11:22 ECG rhythm of AF noted. Patient cardioverted at 200 joules. Success synch 19:17:39 ECG rhythm of ~RHYTHMS~ noted. Patient cardioverted at 300 joules. Success synch. junctiona l 19:20:23 ECG rhythm of ~RHYTHMS~ noted. Patient cardioverted at 300 joules. Success synch. junctiona l 19:22:16 A tach noted on monitor 19:22:38 Ablation complete. 19:23:56 Ablation procedure performed: AFIB. 19:24:05 EP Procedure was performed. 19:27:55 Ablation Catheter was removed 19:29:16 Catheters removed A SHEATH, FR9 SIRISHA 11CM FR 9 was exchanged in the Fem Vein (right). This was necessary in ord er to minimize 19:29:25 site leakage. 19:29:51 AICD reenabled. 19:30:53 Quads removed under fluoro 19:31:17 PACU called. Spoke to Ishmael 19:31:40 Bedside Report will be given. 19:32:00 Sheath(s) left in place, sutured, 0.9ns kvo connected and will be removed in Holding Area 19:32:17 No case complications noted. 19:32:18 Cine recording checked. 40 mg PROTAMINE given in lab by Anesthesia, COMPUTER PROGRAMMING MANAGER via Peripheral IV. Ordered by Deisy Alcantara. Hazel mullins: As per 19:34:29 physicians verbal order. 19:49:04 Activated Clotting Time Drawn Assessment: Final Case, HR=85 BPM, Rhythm=sr, ARGW=698/77 mmhg, Chest Pain=0, Edema=None, [place] r=Normal, Skin = Warm Right Pulses: Shai Ped=3 Left Pulses: Shai Ped=2 19:49:18 Lower Right Extremities: Color=Normal Lower Left Extremities: Color=Normal Neurological: State=Restless, COLLAZO Respiration: Resp=18 B/min, SpO2=99 %, O2=10 lpm 19:49:54 Case End 19:50:09 Sterile dressing applied to site 19:50:18 Defibrillator and ground pads removed. Skin intact. 19:55:20 Patient moved to stretcher End Study - Contrast Media Used In Study Contrast Total Opened (mL) Total Used (mL) Total Wasted (mL) Unspecified 0 0 0 End Study - Maximum Contrast Load Max Contrast Load (mL) 360.4 End Study - Radiation Exposure Fluoro Time (minutes) 7.3 End Study - Patient Disposition Complications Transferred To Interventional Outcome No Telemetry Bed successful
[2017-02-08] MEDS ORDERED: DO NOT ADM ANY ANTICOAGULANT DRUGS PRN (20:00)
[2017-02-08] MEDS ORDERED: RESP: ALBUTEROL CONC 2.5 MG/0.5 ML NEB ONE (20:12)
[2017-02-08] MEDS ORDERED: SUGAMMADEX SODIUM 200 MG/2 ML VIAL IV PUSH ONE ×2 (20:31)
[2017-02-08] MEDS ORDERED: DOFETILIDE 250 MCG CAP PO SCH (21:00)
[2017-02-08] MEDS ORDERED: DOFETILIDE PO SCH (21:00)
[2017-02-08] MEDS: ATORVASTATIN 10 MG TAB PO SCH (21:54)
[2017-02-08] MEDS: DOFETILIDE 250 MCG CAP PO SCH (21:54)
[2017-02-08] MEDS: TAMSULOSIN HCL 0.4 MG CAP PO SCH (21:55)
[2017-02-09] VITALS (16 sets, daily range): BP systolic 91–123; BP diastolic 46–84; PULSE 68–122; RESP 18–20; TEMP 97.8–98.7; O2SAT 96–100
[2017-02-09] MEDS: LEVOTHYROXINE SODIUM 25 MCG TAB PO SCH (05:57)
[2017-02-09] MEDS: INSULIN ASPART SUPPLEMENTAL SCALE SQ SCH ×4 (06:01→21:00)
[2017-02-09] MEDS: DOFETILIDE 250 MCG CAP PO SCH ×2 (08:01→21:06)
[2017-02-09] MEDS: CHOLECALCIFEROL (VIT D3) 5000 UNIT CAP PO SCH (08:01)
[2017-02-09] MEDS: FUROSEMIDE 40 MG TAB PO SCH (08:01)
[2017-02-09] MEDS: METOPROLOL TARTRATE 50 MG TAB PO SCH ×2 (08:01→21:07)
[2017-02-09] MEDS: CLOPIDOGREL 75 MG TAB PO SCH (08:01)
[2017-02-09] MEDS: METOLAZONE 2.5 MG TAB PO SCH (08:02)
[2017-02-09] MEDS: CEFUROXIME AXETIL 500 MG TAB PO SCH ×2 (08:02→21:06)
[2017-02-09] MEDS: ASPIRIN 81 MG CHEW TAB CHEW SCH (08:02)
[2017-02-09] MEDS: VALSARTAN 160 MG TAB PO SCH (08:02)
[2017-02-09] MEDS: PANTOPRAZOLE SOD 40 MG DELAYED RELEASE TAB PO SCH (08:02)
[2017-02-09] MEDS: SODIUM CHLORIDE 0.9% FLUSH 10 ML FLUSH IV FLUSH SCH ×2 (08:03→21:00)
[2017-02-09] MEDS: DOCUSATE SODIUM 50 MG/SENNA 8.6 MG TAB PO SCH ×2 (08:05→21:07)
[2017-02-09 08:33] LABS: APTT (PATIENT) 28.9 SEC (24.3-30.1); INTERNATIONAL NORMALIZED RATIO 1.1 RATIO; PROTHROMBIN TIME - PATIENT 12.7 SEC (9.8-11.6)
[2017-02-09 08:48] LABS: BICARBONATE 25.1 MEQ/L (21.0-32.0); POTASSIUM 4.4 MEQ/L (3.5-5.1)
[2017-02-09] MEDS: INSULIN DETEMIR 100 UNITS/ML VIAL SQ SCH ×2 (09:00→21:12)
--- NOTE | 2017-02-09 09:00 | HHI.PR ---
Subjective Remarks sitting on the chair with no distress. no chest pain or sob. no new complaints. Objective Vitals Vital Signs Date Time Temp Pulse Resp B/P Pulse Ox O2 Delivery O2 Flow Rate FiO2 02/09/17 06:00 110 02/09/17 05:00 112 02/09/17 04:00 114 02/09/17 04:00 98.1 110 18 119/82 100 02/09/17 03:00 112 02/09/17 02:00 112 02/09/17 01:00 90 02/09/17 00:00 93 02/09/17 00:00 98.0 94 18 118/84 98 02/08/17 23:00 90 02/08/17 22:00 88 02/08/17 21:00 98.4 99 18 120/74 94 02/08/17 21:00 86 22 120/59 100 Simple Mask 4 02/08/17 20:45 83 23 123/66 94 Simple Mask 4 02/08/17 20:30 88 20 146/62 100 Simple Mask 4 02/08/17 20:15 97.4 86 21 151/53 94 Simple Mask 4 02/08/17 20:06 96 Nasal Cannula 3.00 02/08/17 16:00 76 02/08/17 16:00 97.9 78 18 137/79 96 02/08/17 15:00 74 02/08/17 14:00 82 02/08/17 13:00 76 02/08/17 12:00 98.4 81 16 123/75 95 02/08/17 12:00 69 02/08/17 11:00 68 02/08/17 10:00 78 02/08/17 09:00 86 I/O 02/08/17 02/08/17 02/08/17 02/09/17 02/09/17 02/09/17 07:00 15:00 23:00 07:00 15:00 23:00 Intake Total 2080 ml 240 ml Output Total 700 ml 500 ml Balance 1380 ml -260 ml Intake Oral 480 ml 240 ml Other 1600 ml Output Urine Total 700 ml 500 ml # Voids 4 # Bowel Movements 1 Result Diagram: 02/08/17 0410 02/09/17 0739 Objective Remarks GENERAL: elderly male, in no apparent distress. CARDIOVASCULAR: Regular rate and regular rhythm without murmurs, gallops, or rubs. RESPIRATORY: Clear to auscultation. Breath sounds equal bilaterally. No wheezes , rales, or rhonchi. GASTROINTESTINAL: Abdomen soft, non-tender, nondistended. Normal, active bowel sounds MUSCULOSKELETAL: Extremities without clubbing, cyanosis, or edema. NEURO: Alert & Oriented x4 to person, place, time, situation. Moves all ext x4 Medications and IVs Current Medications Sodium Chloride (NS Flush) 2 ml UNSCH PRN IV FLUSH FLUSH AFTER USING IV ACCESS ; Start 02/07/17 at 18:00 Sodium Chloride (NS Flush) 2 ml BID IV FLUSH Last administered on 02/09/17 08: 03; Start 02/07/17 at 21:00 Acetaminophen (Tylenol) 650 mg Q4H PRN PO TEMP > 100.4; Start 02/07/17 at 18:00 Ondansetron HCl (Zofran Inj) 4 mg Q6H PRN IVP NAUSEA OR VOMITING; Start at 18:00; Stop 02/07/17 at 19:59; Status DC Temazepam (Restoril) 15 mg HS PRN PO INSOMNIA; Start 02/07/17 at 18:00 Naloxone HCl (Narcan Inj) 0.4 mg UNSCH PRN IV SEE LABEL COMMENTS; Start at 18:00 Senna/Docusate Sodium (Carina-Colace) 1 tab BID PO Last administered on 02/09/17 08:05; Start 02/07/17 at 21:00 Magnesium Hydroxide (Milk Of Magnesia Liq) 30 ml Q12H PRN PO MILD - MODERATE CONSTIPATION; Start 02/07/17 at 18:00 Sennosides (Senokot) 17.2 mg Q12H PRN PO MODERATE - SEVERE CONSTIPATION; Start 02/07/17 at 18:00 Bisacodyl (Dulcolax Supp) 10 mg DAILY PRN RECTAL SEVERE CONSITIPATION; Start at 18:00 Lactulose (Lactulose Liq) 30 ml DAILY PRN PO SEVERE CONSITIPATION; Start at 18:00 Dextrose (D50w (Vial) Inj) 50 ml UNSCH PRN IV HYPOGLYCEMIA-SEE COMMENTS; Start 02/07/17 at 18:30 Glucagon (Glucagon Inj) 1 mg UNSCH PRN OTHER HYPOGLYCEMIA-SEE COMMENTS; Start 02/07/17 at 18:30 Insulin Aspart (NovoLOG SUPPLEMENTAL SCALE) 1 ACHS SLIDING SCALE SQ Last administered on 02/09/17 06:01; Start 02/07/17 at 21:00 Aspirin (Aspirin Chew) 81 mg DAILY CHEW Last administered on 02/09/17 08:02; Start 02/08/17 at 09:00 Atorvastatin Calcium (Lipitor) 10 mg HS PO Last administered on 02/08/17 21:54 ; Start 02/07/17 at 21:00 Cefuroxime Axetil (Ceftin) 500 mg BID PO Last administered on 02/09/17 08:02; Start 02/07/17 at 21:00 Cholecalciferol (Vitamin D3) 5,000 units DAILY PO Last administered on 08:01; Start 02/08/17 at 09:00 Clopidogrel Bisulfate (Plavix) 75 mg DAILY PO ; Start 02/08/17 at 09:00; Stop at 09:00; Status DC Dabigatran (Pradaxa) 150 mg BID PO ; Start 02/07/17 at 21:00; Stop 02/08/17 at 19:36; Status DC Docusate Sodium (Colace) 100 mg BID PRN PO CONSTIPATION; Start 02/07/17 at 19: 45 Dofetilide (Tikosyn) 125 mcg BID PO Last administered on 02/08/17 08:45; Start 02/07/17 at 21:00; Stop 02/08/17 at 11:27; Status DC Furosemide (Lasix) 40 mg DAILY PO Last administered on 02/09/17 08:01; Start at 09:00 Levothyroxine Sodium (Synthroid) 25 mcg DAILY@06 PO Last administered on 05:57; Start 02/08/17 at 06:00 Lorazepam (Ativan) 0.5 mg Q8H PRN PO ANXIETY; Start 02/07/17 at 19:45 Metolazone (Zaroxolyn) 2.5 mg DAILY PO Last administered on 02/09/17 08:02; Start 02/08/17 at 09:00 Metoprolol Tartrate (Lopressor) 50 mg BID PO Last administered on 02/09/17 08: 01; Start 02/07/17 at 21:00 Ondansetron HCl (Zofran Inj) 4 mg Q4H PRN IV PUSH N/V; Start 02/07/17 at 19:45 Pantoprazole Sodium (Protonix) 40 mg DAILY PO Last administered on 02/09/17 08: 02; Start 02/08/17 at 09:00 Tamsulosin HCl (Flomax) 0.4 mg HS PO Last administered on 02/08/17 21:55; Start 02/07/17 at 21:00 Albuterol Sulfate (Albuterol Neb) 1.25 mg TID NEB NEB Last administered on 20:25; Start 02/07/17 at 20:00 Valsartan (Diovan) 320 mg DAILY PO Last administered on 02/09/17 08:02; Start 02/08/17 at 09:00 Clopidogrel Bisulfate (Plavix) 75 mg DAILY PO Last administered on 02/09/17 08: 01; Start 02/08/17 at 09:00 Patient Own Medication PT OWN MED: TIKOSYN (DOFETILI... BID PO ; Start 02/08/17 at 21:00; Status Cancel Insulin Detemir (Levemir Inj) 10 units BID SQ ; Start 02/08/17 at 10:30 Dofetilide 250 mcg 250 mcg BID PO ; Start 02/08/17 at 21:00; Stop 02/08/17 at 21 :00; Status DC Heparin Sodium/ Sodium Chloride 500 ml @ As Directed STK-MED ONCE .ROUTE Last administered on 02/08/17 17:13; Start 02/08/17 at 17:13; Stop 02/08/17 at 17:14 ; Status DC Levofloxacin/ Dextrose 100 ml @ As Directed STK-MED ONCE IV Last administered on 02/08/17 17:25; Start 02/08/17 at 17:13; Stop 02/08/17 at 17:14; Status DC Heparin Sodium/ Dextrose (Heparin-D5W Inj) 250 ml @ As Directed STK-MED ONCE .ROUTE ; Start 02/08/17 at 17:21; Stop 02/08/17 at 17:22; Status DC Isoproterenol HCl (Isuprel Inj) 1 mg STK-MED ONCE .ROUTE ; Start 02/08/17 at 17: 21; Stop 02/08/17 at 17:22; Status DC Protamine Sulfate (Protamine Sulfate Inj) 50 mg STK-MED ONCE .ROUTE ; Start at 17:21; Stop 02/08/17 at 17:22; Status DC Heparin Sodium (Porcine) (Heparin Inj) 20,000 units STK-MED ONCE .ROUTE ; Start 02/08/17 at 17:21; Stop 02/08/17 at 17:22; Status DC Lorazepam (Ativan Inj) 0.5 mg UNSCH PRN IV ANXIETY; Start 02/08/17 at 19:45; Stop 02/09/17 at 19:44 Atropine Sulfate 0.5 mg 0.5 mg UNSCH PRN IV VAGAL REPONSE; Start 02/08/17 at 19 :45 Sodium Chloride (NS 250 ml Inj) 250 ml @ 500 mls/hr ONCE PRN IV VAGAL REPONSE ; Start 02/08/17 at 19:45; Stop 02/09/17 at 19:44 Metoclopramide HCl (Reglan Inj) 10 mg Q4H PRN IV NAUSEA; Start 02/08/17 at 19: 45 Ondansetron HCl (Zofran Inj) 4 mg Q4H PRN IV NAUSEA; Start 02/08/17 at 19:45 Lidocaine HCl (Xylocaine 1% Inj (50 ml)) 10 ml UNSCH PRN INFIL SHEATH REMOVAL; Start 02/08/17 at 19:45; Stop 02/09/17 at 19:44 Bacitracin (Bacitracin Oint Packet) 0.9 gm ONCE ONCE TOP ; Start 02/08/17 at 19 :45; Stop 02/08/17 at 20:43; Status DC Dabigatran (Pradaxa) 150 mg BID PO ; Start 02/09/17 at 21:00 Dofetilide (Tikosyn) 500 mcg BID PO Last administered on 02/09/17t 08:01; Start 02/08/17 at 21:00 Fentanyl Citrate (fentaNYL INJ) 250 mcg STK-MED ONCE .ROUTE ; Start 02/08/17 at 19:38; Stop 02/08/17 at 19:39; Status DC Albuterol Sulfate (Albuterol Concentrated Neb) 2.5 mg STK-MED ONCE .ROUTE ; Start 02/08/17 at 20:12; Stop 02/08/17 at 20:13; Status DC Fentanyl Citrate (fentaNYL INJ) 100 mcg STK-MED ONCE .ROUTE ; Start 02/08/17 at 20:31; Stop 02/08/17 at 20:32; Status DC Sugammadex Sodium (Bridion Inj) 200 mg STK-MED ONCE IV PUSH ; Start 02/08/17 at 20:31; Stop 02/08/17 at 20:32; Status DC Miscellaneous Information ALL NURSING DEPARTME... UNSCH PRN .XX SEE LABEL COMMENTS; Start 02/08/17 at 20:00; Stop 02/09/17 at 19:59 A/P Assessment and Plan A/P Atrial fibrillation with RVR -s/p ablation -on Tikosyn and Pradaxa - continuous cardiac telemetry - cardiology following. Abscess/Cellulitis of the left leg - s/p I&D at [facility] and completed course of IV antibiotics -improving. -continue with daily wound changes. consulted wound care. - Continue on po antibiotics Ceftin 500mg po BID chronic respiratory failure on 2 L of oxygen at home -due to pulmonary fibrosis -Viscosity Tester consult appreciated. DM - On SSI -At home patient takes Lantus 40 units every morning. -Blood sugars running in the 200s. on Levemir at 10 units twice a day and adjust accordingly. -continue with SSI Hypothyroidism/cardiomyopathy/HTN/HLP/NSVTs/p AICD -continue home medication. DVT prophylaxis -Patient is on Pradaxa. Discharge Planning when cleared by Cardiology. Winter Gaines MD Feb 09, 2017 09:00
[2017-02-09] MEDS: RESP: ALBUTEROL 1.25 MG/3 ML NEB (SCH) NEB ×2 (12:44→20:00)
--- NOTE | 2017-02-09 13:39 | PD.WCN.NOT ---
Wound Consult Description: L lateral lower leg wound Communicated with: RN Red [facility] and Doctor Eder Recommendation: Please cleanse wound to L lateral lower leg with normal saline or wound cleanser and apply adhesive foam dressing. Please apply skin prep to periwound and before applying adhesives to skin.Change dressing every 3 days or PRN for saturation or dislodgement Additional Information: Patient seen on [facility] for wound management of Lower leg with discharge. Removed dressing to L lateral lower leg to reveal shallow wound. Patient is unable to remember when or how wound occurred.Removed tubular elastic bandage and adhesive foam dressing that was last changed on Tuesday 02/06 per patient's family members. Wound bed presents with 100% dark red moist non granulation tissue. Wound is draining minimal active sero-sanguinous drainage that is without odor. Periwound noted with some maceration, but otherwise unremarkable. Cleansed wound with normal saline and applied Allevyn adhesive foam dressing over wound bed. Applied patient's tubular bandage in place over dressing. Patient's bilateral lower legs have edema. Spoke with patient and RN about elevating patient's bilateral lower extremities while in bed or chair. Nargis Pizano [facility] Feb 09, 2017 13:39
--- NOTE | 2017-02-09 14:38 | EKG ---
Date Performed: 02/08/2017 Time Performed: 21:05:59 PTAGE: 86 years EKG: ATRIAL FIBRILLATION MARKED LEFT AXIS DEVIATION PATTERN CONSISTENT WITH PULMONARY DISEASE ST DEPRESSION, CONSIDER SUBENDOCARDIAL INJURY Compared to prior tracing no significant change ABNORMAL ECG PREVIOUS TRACING : 02/08/2017 12.20 DOCTOR: Juan Jose Crooks Interpretating Date/Time 02/09/2017 14:37:08
--- NOTE | 2017-02-09 14:38 | EKG ---
Date Performed: 02/09/2017 Time Performed: 05:42:14 PTAGE: 86 years EKG: Probable accelerated junctional rhythm Left anterior fascicular block Extensive ST-T change s suggest myocardial injury/ischemia Low QRS voltages in limb leads Compared to prior tracing no sign ificant change Abnormal ECG PREVIOUS TRACING : 02/08/2017 21.05 DOCTOR: Juan Jose Crooks Interpretating Date/Time 02/09/2017 14:37:19
--- NOTE | 2017-02-09 14:48 | EKG ---
Date Performed: 02/08/2017 Time Performed: 12:20:44 PTAGE: 86 years EKG: Atrial fibrillation Prolonged QT interval Left anterior fascicular block Extensive ST-T graham nges are nonspecific Cannot rule out ischemia Clinical correlation is recommended Abnormal ECG NO PREVIOUS TRACING DOCTOR: Juan Jose Crooks Interpretating Date/Time 02/09/2017 14:47:22
--- NOTE | 2017-02-09 19:37 | HHI.PR ---
Subjective Remarks 86 YOWM with PF,AF,DM,HTN had ablation done 02/08 Tikosyn increased breathing better no CP Objective Vital Signs Vital Signs Date Time Temp Pulse Resp B/P Pulse Ox O2 Delivery O2 Flow Rate FiO2 02/09/17 16:52 96 Nasal Cannula 3.00 02/09/17 16:00 98.7 115 18 106/79 97 02/09/17 16:00 114 02/09/17 12:00 97.8 108 20 91/46 96 02/09/17 12:00 108 02/09/17 08:00 68 02/09/17 08:00 97.8 68 20 114/76 99 02/09/17 06:00 110 02/09/17 05:00 112 02/09/17 04:00 114 02/09/17 04:00 98.1 110 18 119/82 100 02/09/17 03:00 112 02/09/17 02:00 112 02/09/17 01:00 90 02/09/17 00:00 93 02/09/17 00:00 98.0 94 18 118/84 98 02/08/17 23:00 90 02/08/17 22:00 88 02/08/17 21:00 98.4 99 18 120/74 94 02/08/17 21:00 86 22 120/59 100 Simple Mask 4 02/08/17 20:45 83 23 123/66 94 Simple Mask 4 02/08/17 20:30 88 20 146/62 100 Simple Mask 4 02/08/17 20:15 97.4 86 21 151/53 94 Simple Mask 4 02/08/17 20:06 96 Nasal Cannula 3.00 I/O 02/08/17 02/08/17 02/08/17 02/09/17 02/09/17 02/09/17 07:00 15:00 23:00 07:00 15:00 23:00 Intake Total 2080 ml 240 ml 480 ml Output Total 700 ml 500 ml 250 ml Balance 1380 ml -260 ml 230 ml Intake Oral 480 ml 240 ml 480 ml Other 1600 ml Output Urine Total 700 ml 500 ml 250 ml # Voids 4 # Bowel Movements 1 Result Diagram: 02/08/17 0410 02/09/17 0739 Objective Remarks GENERAL: WBWN WM, NAD SKIN: Warm and dry. HEAD: Normocephalic. EYES: No scleral icterus. No injection or drainage. NECK: Supple, trachea midline. No JVD or lymphadenopathy. CARDIOVASCULAR: Regular rate and rhythm without murmurs, gallops, or rubs. RESPIRATORY: Breath sounds equal bilaterally. No accessory muscle use. GASTROINTESTINAL: Abdomen soft, non-tender, nondistended. MUSCULOSKELETAL: No cyanosis, or edema. BACK: Nontender without obvious deformity. No CVA tenderness. A/P Assessment and Plan Pulm. Fibrosis AF, s/p ablation DM HTN S/P I&D left leg PLAN Supplement 02 Aerosol nebs PRN monitor BS MILLI moreland at BS Ralph Orta MD Feb 09, 2017 19:37
[2017-02-09] MEDS: ATORVASTATIN 10 MG TAB PO SCH (21:06)
[2017-02-09] MEDS: TAMSULOSIN HCL 0.4 MG CAP PO SCH (21:06)
[2017-02-09] MEDS: DABIGATRAN ETEXILATE 150 MG CAP PO SCH (21:07)
[2017-02-10] VITALS (26 sets, daily range): BP systolic 99–118; BP diastolic 60–81; PULSE 68–113; RESP 18–20; TEMP 98–98.5; O2SAT 96–99
[2017-02-10] MEDS: LEVOTHYROXINE SODIUM 25 MCG TAB PO SCH (05:30)
[2017-02-10] MEDS: INSULIN ASPART SUPPLEMENTAL SCALE SQ SCH ×4 (05:31→21:10)
--- NOTE | 2017-02-10 07:41 | PD.CARD.PN ---
Subjective Subjective Remarks No complaints this morning. Objective Medications Current Medications Medications (Trade) Dose Ordered Sig/Andie Route Start Time Stop Time Status Last Admin (NS Flush) 2 ml UNSCH PRN IV FLUSH 02/07/17 18:00 (NS Flush) 2 ml BID IV FLUSH 02/07/17 21:00 02/09/17 21:00 (Tylenol) 650 mg Q4H PRN PO 02/07/17 18:00 (Restoril) 15 mg HS PRN PO 02/07/17 18:00 (Narcan Inj) 0.4 mg UNSCH PRN IV 02/07/17 18:00 (Carina-Colace) 1 tab BID PO 02/07/17 21:00 02/09/17 21:07 (Milk Of Magnesia Liq) 30 ml Q12H PRN PO 02/07/17 18:00 (Senokot) 17.2 mg Q12H PRN PO 02/07/17 18:00 (Dulcolax Supp) 10 mg DAILY PRN RECTAL 02/07/17 18:00 (Lactulose Liq) 30 ml DAILY PRN PO 02/07/17 18:00 (D50w (Vial) Inj) 50 ml UNSCH PRN IV 02/07/17 18:30 (Glucagon Inj) 1 mg UNSCH PRN OTHER 02/07/17 18:30 (Aspirin Chew) 81 mg DAILY CHEW 02/08/17 09:00 02/09/17 08:02 (Lipitor) 10 mg HS PO 02/07/17 21:00 02/09/17 21:06 (Ceftin) 500 mg BID PO 02/07/17 21:00 02/09/17 21:06 (Vitamin D3) 5,000 units DAILY PO 02/08/17 09:00 02/09/17 08:01 (Lasix) 40 mg DAILY PO 02/08/17 09:00 02/09/17 08:01 (Synthroid) 25 mcg DAILY@06 PO 02/08/17 06:00 02/10/17 05:30 (Ativan) 0.5 mg Q8H PRN PO 02/07/17 19:45 (Zaroxolyn) 2.5 mg DAILY PO 02/08/17 09:00 02/09/17 08:02 (Lopressor) 50 mg BID PO 02/07/17 21:00 02/09/17 21:07 (Zofran Inj) 4 mg Q4H PRN IV PUSH 02/07/17 19:45 (Protonix) 40 mg DAILY PO 02/08/17 09:00 02/09/17 08:02 (Flomax) 0.4 mg HS PO 02/07/17 21:00 02/09/17 21:06 (Diovan) 320 mg DAILY PO 02/08/17 09:00 02/09/17 08:02 (Plavix) 75 mg DAILY PO 02/08/17 09:00 02/09/17 08:01 (Levemir Inj) 10 units BID SQ 02/08/17 10:30 02/09/17 21:12 (Atropine Inj) 0.5 mg UNSCH PRN IV 02/08/17 19:45 (Reglan Inj) 10 mg Q4H PRN IV 02/08/17 19:45 (Zofran Inj) 4 mg Q4H PRN IV 02/08/17 19:45 (Pradaxa) 150 mg BID PO 02/09/17 21:00 02/09/17 21:07 (Tikosyn) 500 mcg BID PO 02/08/17 21:00 02/09/17 21:06 Vital Signs / I&O Vital Signs Date Time Temp Pulse Resp B/P Pulse Ox O2 Delivery O2 Flow Rate FiO2 02/10/17 06:00 82 02/10/17 05:00 94 02/10/17 04:00 98 02/10/17 04:00 98.5 84 18 99/63 99 02/10/17 03:00 95 02/10/17 02:39 98 Nasal Cannula 3.00 02/10/17 02:00 92 02/10/17 01:00 92 02/10/17 00:00 98 02/10/17 00:00 98.4 90 18 117/81 99 02/09/17 23:00 106 02/09/17 22:00 122 02/09/17 21:00 118 02/09/17 20:00 106 02/09/17 20:00 98.7 108 18 123/71 96 02/09/17 19:00 116 02/09/17 16:52 96 Nasal Cannula 3.00 02/09/17 16:00 98.7 115 18 106/79 97 8/1/17 16:00 114 02/09/17 12:00 97.8 108 20 91/46 96 02/09/17 12:00 108 02/09/17 08:00 68 02/09/17 08:00 97.8 68 20 114/76 99 I/O 02/09/17 02/09/17 02/09/17 02/10/17 02/10/17 02/10/17 07:00 15:00 23:00 07:00 15:00 23:00 Intake Total 240 ml 480 ml 480 ml Output Total 500 ml 250 ml 1290 ml Balance -260 ml 230 ml -810 ml Intake Oral 240 ml 480 ml 480 ml Output Urine Total 500 ml 250 ml 1290 ml Physical Exam GENERAL: Well-nourished, well-developed patient. SKIN: Warm and dry. HEAD: Normocephalic. EYES: No scleral icterus. No injection or drainage. NECK: Supple, trachea midline. No JVD or lymphadenopathy. CARDIOVASCULAR: Irregular rhythm, tachycardic rate without murmurs, gallops, or rubs. RESPIRATORY: Breath sounds equal, diminished bilaterally. No accessory muscle use. GASTROINTESTINAL: Abdomen soft, non-tender, nondistended. EXTREMITIES: No cyanosis, or edema. NEUROLOGICAL: Awake, alert, and oriented x 3. Non-focal. Laboratory Laboratory Tests Test 02/09/17 07:49 Prothrombin Time 12.7 SEC Prothromb Time International 1.1 RATIO Ratio Activated Partial 28.9 SEC Thromboplast Time Assessment and Plan Problem List: (1) Atrial fibrillation Assessment and Plan: Remains in atrial fibrillation, on Pradaxa for anticoagulation. He is receiving dofetilide, diltiazem, metoprolol which have not been effective in controlling heart rate in spite of an increase in the dofetilide dose. He developed pulmonary hypertension from previous amiodarone use. Plan is for AV node ablation Wednesday if heart rate remains uncontrolled per my discussion with Dr. Alcantara. (2) ICD (implantable cardioverter-defibrillator) in place Assessment and Plan: Received multiple shocks in the past secondary to atrial fibrillation with rapid ventricular response. No shocks since admission. AV node ablation planned for Wednesday. Assessment and Plan Discussed with patient, RN and Dr. Alcantara. Problem Qualifiers (1) Atrial fibrillation: Qualified Code: I48.0 - Paroxysmal atrial fibrillation Jacquelin Nowak Feb 10, 2017 07:41
[2017-02-10] MEDS: RESP: ALBUTEROL 1.25 MG/3 ML NEB (SCH) NEB ×3 (08:00→20:21)
--- NOTE | 2017-02-10 09:12 | HHI.PR ---
Subjective Remarks f/u; a-fib in no acute distress. with mild sob. denies any chest pain. Objective Vitals Vital Signs Date Time Temp Pulse Resp B/P Pulse Ox O2 Delivery O2 Flow Rate FiO2 02/10/17 08:47 98 Nasal Cannula 3.00 02/10/17 07:15 93 02/10/17 07:15 98 Nasal Cannula 3.00 02/10/17 07:15 98.5 113 20 99/63 98 02/10/17 06:00 82 02/10/17 05:00 94 02/10/17 04:00 98 02/10/17 04:00 98.5 84 18 99/63 99 02/10/17 03:00 95 02/10/17 02:39 98 Nasal Cannula 3.00 02/10/17 02:00 92 02/10/17 01:00 92 02/10/17 00:00 98 02/10/17 00:00 98.4 90 18 117/81 99 02/09/17 23:00 106 02/09/17 22:00 122 02/09/17 21:00 118 02/09/17 20:00 106 02/09/17 20:00 98.7 108 18 123/71 96 02/09/17 19:00 116 02/09/17 16:52 96 Nasal Cannula 3.00 02/09/17 16:00 98.7 115 18 106/79 97 02/09/17 16:00 114 02/09/17 12:00 97.8 108 20 91/46 96 02/09/17 12:00 108 I/O 02/09/17 02/09/17 02/09/17 02/10/17 02/10/17 02/10/17 07:00 15:00 23:00 07:00 15:00 23:00 Intake Total 240 ml 480 ml 480 ml Output Total 500 ml 250 ml 1290 ml Balance -260 ml 230 ml -810 ml Intake Oral 240 ml 480 ml 480 ml Output Urine Total 500 ml 250 ml 1290 ml Result Diagram: 02/08/17 0410 02/09/17 0739 Objective Remarks GENERAL: elderly male, in no apparent distress-however with mild sob CARDIOVASCULAR: Regular rate and irregular rhythm without murmurs, gallops, or rubs. RESPIRATORY: Clear to auscultation. Breath sounds equal bilaterally. No wheezes , rales, or rhonchi. GASTROINTESTINAL: Abdomen soft, non-tender, nondistended. Normal, active bowel sounds MUSCULOSKELETAL: Extremities without clubbing, cyanosis, or edema. NEURO: Alert & Oriented x4 to person, place, time, situation. Moves all ext x4 Medications and IVs Current Medications Sodium Chloride (NS Flush) 2 ml UNSCH PRN IV FLUSH FLUSH AFTER USING IV ACCESS ; Start 02/07/17 at 18:00 Sodium Chloride (NS Flush) 2 ml BID IV FLUSH Last administered on 02/09/17 21: 00; Start 02/07/17 at 21:00 Acetaminophen (Tylenol) 650 mg Q4H PRN PO TEMP > 100.4; Start 02/07/17 at 18:00 Ondansetron HCl (Zofran Inj) 4 mg Q6H PRN IVP NAUSEA OR VOMITING; Start at 18:00; Stop 02/07/17 at 19:59; Status DC Temazepam (Restoril) 15 mg HS PRN PO INSOMNIA; Start 02/07/17 at 18:00 Naloxone HCl (Narcan Inj) 0.4 mg UNSCH PRN IV SEE LABEL COMMENTS; Start at 18:00 Senna/Docusate Sodium (Carina-Colace) 1 tab BID PO Last administered on 02/09/17 21:07; Start 02/07/17 at 21:00 Magnesium Hydroxide (Milk Of Magnesia Liq) 30 ml Q12H PRN PO MILD - MODERATE CONSTIPATION; Start 02/07/17 at 18:00 Sennosides (Senokot) 17.2 mg Q12H PRN PO MODERATE - SEVERE CONSTIPATION; Start 02/07/17 at 18:00 Bisacodyl (Dulcolax Supp) 10 mg DAILY PRN RECTAL SEVERE CONSITIPATION; Start at 18:00 Lactulose (Lactulose Liq) 30 ml DAILY PRN PO SEVERE CONSITIPATION; Start at 18:00 Dextrose (D50w (Vial) Inj) 50 ml UNSCH PRN IV HYPOGLYCEMIA-SEE COMMENTS; Start 02/07/17 at 18:30 Glucagon (Glucagon Inj) 1 mg UNSCH PRN OTHER HYPOGLYCEMIA-SEE COMMENTS; Start 02/07/17 at 18:30 Insulin Aspart (NovoLOG SUPPLEMENTAL SCALE) 1 ACHS SLIDING SCALE SQ Last administered on 02/10/17 05:31; Start 02/07/17 at 21:00 Aspirin (Aspirin Chew) 81 mg DAILY CHEW Last administered on 02/09/17 08:02; Start 02/08/17 at 09:00 Atorvastatin Calcium (Lipitor) 10 mg HS PO Last administered on 02/09/17 21:06 ; Start 02/07/17 at 21:00 Cefuroxime Axetil (Ceftin) 500 mg BID PO Last administered on 02/09/17 21:06; Start 02/07/17 at 21:00 Cholecalciferol (Vitamin D3) 5,000 units DAILY PO Last administered on 08:01; Start 02/08/17 at 09:00 Clopidogrel Bisulfate (Plavix) 75 mg DAILY PO ; Start 02/08/17 at 09:00; Stop at 09:00; Status DC Dabigatran (Pradaxa) 150 mg BID PO ; Start 02/07/17 at 21:00; Stop 02/08/17 at 19:36; Status DC Docusate Sodium (Colace) 100 mg BID PRN PO CONSTIPATION; Start 02/07/17 at 19: 45; Stop 02/09/17 at 15:24; Status DC Dofetilide (Tikosyn) 125 mcg BID PO Last administered on 02/08/17 08:45; Start 02/07/17 at 21:00; Stop 02/08/17 at 11:27; Status DC Furosemide (Lasix) 40 mg DAILY PO Last administered on 02/09/17 08:01; Start at 09:00 Levothyroxine Sodium (Synthroid) 25 mcg DAILY@06 PO Last administered on 05:30; Start 02/08/17 at 06:00 Lorazepam (Ativan) 0.5 mg Q8H PRN PO ANXIETY; Start 02/07/17 at 19:45 Metolazone (Zaroxolyn) 2.5 mg DAILY PO Last administered on 02/09/17 08:02; Start 02/08/17 at 09:00 Metoprolol Tartrate (Lopressor) 50 mg BID PO Last administered on 02/09/17 21: 07; Start 02/07/17 at 21:00 Ondansetron HCl (Zofran Inj) 4 mg Q4H PRN IV PUSH N/V; Start 02/07/17 at 19:45 Pantoprazole Sodium (Protonix) 40 mg DAILY PO Last administered on 02/09/17 08: 02; Start 02/08/17 at 09:00 Tamsulosin HCl (Flomax) 0.4 mg HS PO Last administered on 02/09/17 21:06; Start 02/07/17 at 21:00 Albuterol Sulfate (Albuterol Neb) 1.25 mg TID NEB NEB Last administered on 20:25; Start 02/07/17 at 20:00 Valsartan (Diovan) 320 mg DAILY PO Last administered on 02/09/17 08:02; Start 02/08/17 at 09:00 Clopidogrel Bisulfate (Plavix) 75 mg DAILY PO Last administered on 02/09/17 08: 01; Start 02/08/17 at 09:00 Patient Own Medication PT OWN MED: TIKOSYN (DOFETILI... BID PO ; Start 02/08/17 at 21:00; Status Cancel Insulin Detemir (Levemir Inj) 10 units BID SQ Last administered on 02/09/17 21: 12; Start 02/08/17 at 10:30 Dofetilide 250 mcg 250 mcg BID PO ; Start 02/08/17 at 21:00; Stop 02/08/17 at 21 :00; Status DC Heparin Sodium/ Sodium Chloride 500 ml @ As Directed STK-MED ONCE .ROUTE Last administered on 02/08/17 17:13; Start 02/08/17 at 17:13; Stop 02/08/17 at 17:14 ; Status DC Levofloxacin/ Dextrose 100 ml @ As Directed STK-MED ONCE IV Last administered on 02/08/17 17:25; Start 02/08/17 at 17:13; Stop 02/08/17 at 17:14; Status DC Heparin Sodium/ Dextrose (Heparin-D5W Inj) 250 ml @ As Directed STK-MED ONCE .ROUTE ; Start 02/08/17 at 17:21; Stop 02/08/17 at 17:22; Status DC Isoproterenol HCl (Isuprel Inj) 1 mg STK-MED ONCE .ROUTE ; Start 02/08/17 at 17: 21; Stop 02/08/17 at 17:22; Status DC Protamine Sulfate (Protamine Sulfate Inj) 50 mg STK-MED ONCE .ROUTE ; Start at 17:21; Stop 02/08/17 at 17:22; Status DC Heparin Sodium (Porcine) (Heparin Inj) 20,000 units STK-MED ONCE .ROUTE ; Start 02/08/17 at 17:21; Stop 02/08/17 at 17:22; Status DC Lorazepam (Ativan Inj) 0.5 mg UNSCH PRN IV ANXIETY; Start 02/08/17 at 19:45; Stop 02/09/17 at 19:44; Status DC Atropine Sulfate 0.5 mg 0.5 mg UNSCH PRN IV VAGAL REPONSE; Start 02/08/17 at 19 :45 Sodium Chloride (NS 250 ml Inj) 250 ml @ 500 mls/hr ONCE PRN IV VAGAL REPONSE ; Start 02/08/17 at 19:45; Stop 02/09/17 at 19:44; Status DC Metoclopramide HCl (Reglan Inj) 10 mg Q4H PRN IV NAUSEA; Start 02/08/17 at 19: 45 Ondansetron HCl (Zofran Inj) 4 mg Q4H PRN IV NAUSEA; Start 02/08/17 at 19:45 Lidocaine HCl (Xylocaine 1% Inj (50 ml)) 10 ml UNSCH PRN INFIL SHEATH REMOVAL; Start 02/08/17 at 19:45; Stop 02/09/17 at 19:44; Status DC Bacitracin (Bacitracin Oint Packet) 0.9 gm ONCE ONCE TOP ; Start 02/08/17 at 19 :45; Stop 02/08/17 at 20:43; Status DC Dabigatran (Pradaxa) 150 mg BID PO Last administered on 02/09/17 21:07; Start 02/09/17 at 21:00 Dofetilide (Tikosyn) 500 mcg BID PO Last administered on 02/09/17 21:06; Start 02/08/17 at 21:00 Fentanyl Citrate (fentaNYL INJ) 250 mcg STK-MED ONCE .ROUTE ; Start 02/08/17 at 19:38; Stop 02/08/17 at 19:39; Status DC Albuterol Sulfate (Albuterol Concentrated Neb) 2.5 mg STK-MED ONCE .ROUTE ; Start 02/08/17 at 20:12; Stop 02/08/17 at 20:13; Status DC Fentanyl Citrate (fentaNYL INJ) 100 mcg STK-MED ONCE .ROUTE ; Start 02/08/17 at 20:31; Stop 02/08/17 at 20:32; Status DC Sugammadex Sodium (Bridion Inj) 200 mg STK-MED ONCE IV PUSH ; Start 02/08/17 at 20:31; Stop 02/08/17 at 20:32; Status DC Miscellaneous Information ALL NURSING DEPARTME... UNSCH PRN .XX SEE LABEL COMMENTS; Start 02/08/17 at 20:00; Stop 02/09/17 at 19:59; Status DC Propofol (Diprivan 200 Mg/20 ml Inj) 200 mg STK-MED ONCE IV ; Start 02/08/17 at 16:51; Stop 02/09/17 at 10:34; Status DC Sodium Chloride (NS 500 ml Inj) 500 ml STK-MED ONCE IV ; Start 02/08/17 at 16:51 ; Stop 02/09/17 at 10:34; Status DC A/P Assessment and Plan A/P Atrial fibrillation with RVR -s/p ablation- still in atrial fibrillation -on Tikosyn and Pradaxa - continuous cardiac telemetry - cardiology following and plan for possible AV yasmeen ablation if HR still uncontrolled. Abscess/Cellulitis of the left leg - s/p I&D at [facility] and completed course of IV antibiotics -improving. -continue with daily wound changes. consulted wound care. - Continue on po antibiotics Ceftin 500mg po BID chronic respiratory failure on 2 L of oxygen at home -due to pulmonary fibrosis -Banking Services Officer consult appreciated. DM - On SSI -At home patient takes Lantus 40 units every morning. -Blood sugars running in the 200s. will increase Levemir to 12 units twice a day. -continue with SSI -will continue to monitor and adjust the regimen as needed. Hypothyroidism/cardiomyopathy/HTN/HLP/NSVTs/p AICD -continue home medication. DVT prophylaxis -Patient is on Pradaxa. Discharge Planning when cleared by Cardiology. Winter Gaines MD Feb 10, 2017 09:12
[2017-02-10] MEDS: PANTOPRAZOLE SOD 40 MG DELAYED RELEASE TAB PO SCH (10:18)
[2017-02-10] MEDS: DOCUSATE SODIUM 50 MG/SENNA 8.6 MG TAB PO SCH ×2 (10:18→21:07)
[2017-02-10] MEDS: VALSARTAN 160 MG TAB PO SCH (10:19)
[2017-02-10] MEDS: ASPIRIN 81 MG CHEW TAB CHEW SCH (10:19)
[2017-02-10] MEDS: FUROSEMIDE 40 MG TAB PO SCH (10:19)
[2017-02-10] MEDS: CEFUROXIME AXETIL 500 MG TAB PO SCH ×2 (10:19→21:07)
[2017-02-10] MEDS: CLOPIDOGREL 75 MG TAB PO SCH (10:20)
[2017-02-10] MEDS: METOPROLOL TARTRATE 50 MG TAB PO SCH ×2 (10:20→21:07)
[2017-02-10] MEDS: METOLAZONE 2.5 MG TAB PO SCH (10:20)
[2017-02-10] MEDS: DOFETILIDE 250 MCG CAP PO SCH ×2 (10:20→21:07)
[2017-02-10] MEDS: SODIUM CHLORIDE 0.9% FLUSH 10 ML FLUSH IV FLUSH SCH ×2 (10:21→21:08)
[2017-02-10] MEDS: DABIGATRAN ETEXILATE 150 MG CAP PO SCH ×2 (10:21→21:00)
[2017-02-10] MEDS: CHOLECALCIFEROL (VIT D3) 5000 UNIT CAP PO SCH (10:21)
--- NOTE | 2017-02-10 19:21 | HHI.PR ---
Subjective Remarks Doing ok Objective Vital Signs Date Time Temp Pulse Resp B/P Pulse Ox O2 Delivery O2 Flow Rate FiO2 02/10/17 18:00 72 02/10/17 17:00 68 02/10/17 16:00 89 02/10/17 15:04 100 02/10/17 15:04 98.2 111 18 112/60 96 02/10/17 14:00 96 02/10/17 13:00 94 02/10/17 12:00 97 02/10/17 11:00 98.2 107 18 111/63 96 02/10/17 11:00 85 02/10/17 10:00 88 02/10/17 09:00 86 02/10/17 08:47 98 Nasal Cannula 3.00 02/10/17 08:00 100 02/10/17 07:15 93 02/10/17 07:15 98 Nasal Cannula 3.00 02/10/17 07:15 98.5 113 20 99/63 98 02/10/17 06:00 82 02/10/17 05:00 94 02/10/17 04:00 98 02/10/17 04:00 98.5 84 18 99/63 99 02/10/17 03:00 95 02/10/17 02:39 98 Nasal Cannula 3.00 02/10/17 02:00 92 02/10/17 01:00 92 02/10/17 00:00 98 02/10/17 00:00 98.4 90 18 117/81 99 02/09/17 23:00 106 02/09/17 22:00 122 02/09/17 21:00 118 02/09/17 20:00 106 02/09/17 20:00 98.7 108 18 123/71 96 I/O 02/09/17 02/09/17 02/09/17 02/10/17 02/10/17 02/10/17 07:00 15:00 23:00 07:00 15:00 23:00 Intake Total 240 ml 480 ml 480 ml 840 ml Output Total 500 ml 250 ml 1290 ml 300 ml Balance -260 ml 230 ml -810 ml 540 ml Intake Oral 240 ml 480 ml 480 ml 840 ml Output Urine Total 500 ml 250 ml 1290 ml 300 ml # Voids 1 Result Diagram: 02/08/17 0410 02/09/17 0739 Imaging Alert, fully oriented, in bed Lungs: ventilated Heart: S1, S2 irregular, tachycardia Abdomen: soft, no mass Ext: left leg cellulitis Current Medications Medications (Trade) Dose Ordered Sig/Andie Route Start Time Stop Time Status Last Admin (NS Flush) 2 ml UNSCH PRN IV FLUSH 02/07/17 18:00 (NS Flush) 2 ml BID IV FLUSH 02/07/17 21:00 02/10/17 10:21 (Tylenol) 650 mg Q4H PRN PO 02/07/17 18:00 (Restoril) 15 mg HS PRN PO 02/07/17 18:00 (Narcan Inj) 0.4 mg UNSCH PRN IV 02/07/17 18:00 (Carina-Colace) 1 tab BID PO 02/07/17 21:00 02/10/17 10:18 (Milk Of Magnesia Liq) 30 ml Q12H PRN PO 02/07/17 18:00 (Senokot) 17.2 mg Q12H PRN PO 02/07/17 18:00 (Dulcolax Supp) 10 mg DAILY PRN RECTAL 02/07/17 18:00 (Lactulose Liq) 30 ml DAILY PRN PO 02/07/17 18:00 (D50w (Vial) Inj) 50 ml UNSCH PRN IV 02/07/17 18:30 (Glucagon Inj) 1 mg UNSCH PRN OTHER 02/07/17 18:30 (Aspirin Chew) 81 mg DAILY CHEW 02/08/17 09:00 02/10/17 10:19 (Lipitor) 10 mg HS PO 02/07/17 21:00 02/09/17 21:06 (Ceftin) 500 mg BID PO 02/07/17 21:00 02/10/17 10:19 (Vitamin D3) 5,000 units DAILY PO 02/08/17 09:00 02/10/17 10:21 (Lasix) 40 mg DAILY PO 02/08/17 09:00 02/10/17 10:19 (Synthroid) 25 mcg DAILY@06 PO 02/08/17 06:00 02/10/17 05:30 (Ativan) 0.5 mg Q8H PRN PO 02/07/17 19:45 (Zaroxolyn) 2.5 mg DAILY PO 02/08/17 09:00 02/10/17 10:20 (Lopressor) 50 mg BID PO 02/07/17 21:00 02/10/17 10:20 (Zofran Inj) 4 mg Q4H PRN IV PUSH 02/07/17 19:45 (Protonix) 40 mg DAILY PO 02/08/17 09:00 02/10/17 10:18 (Flomax) 0.4 mg HS PO 02/07/17 21:00 02/09/17 21:06 (Diovan) 320 mg DAILY PO 02/08/17 09:00 02/10/17 10:19 (Plavix) 75 mg DAILY PO 02/08/17 09:00 02/10/17 10:20 (Atropine Inj) 0.5 mg UNSCH PRN IV 02/08/17 19:45 (Reglan Inj) 10 mg Q4H PRN IV 02/08/17 19:45 (Zofran Inj) 4 mg Q4H PRN IV 02/08/17 19:45 (Pradaxa) 150 mg BID PO 02/09/17 21:00 02/10/17 10:21 (Tikosyn) 500 mcg BID PO 02/08/17 21:00 02/10/17 10:20 (Levemir Inj) 12 units BID SQ 02/10/17 21:00 Assessment and Plan Problem List: (1) Atrial fibrillation Status: Acute Plan: In atrial fibrillation. On multiple medications. Tikosyn was increased HR difficult to control. AV node ablation discussed. The risks, the nature and benefits discussed. Patient and family understand and agree to proceed. Procedure will be scheduled. (2) ICD (implantable cardioverter-defibrillator) in place Status: Acute Plan: Device well functioning Problem Qualifiers (1) Atrial fibrillation: Qualified Code: I48.0 - Paroxysmal atrial fibrillation Deisy Alcantara MD Feb 10, 2017 19:21
--- NOTE | 2017-02-10 19:56 | HHI.PR ---
Subjective Remarks 86 YOWM with PF,AF,DM,HTN had ablation done 02/08 Tikosyn increased breathing better no CP Objective Vital Signs Vital Signs Date Time Temp Pulse Resp B/P Pulse Ox O2 Delivery O2 Flow Rate FiO2 02/10/17 18:00 72 02/10/17 17:00 68 02/10/17 16:00 89 02/10/17 15:04 100 02/10/17 15:04 98.2 111 18 112/60 96 02/10/17 14:00 96 02/10/17 13:00 94 02/10/17 12:00 97 02/10/17 11:00 98.2 107 18 111/63 96 02/10/17 11:00 85 02/10/17 10:00 88 02/10/17 09:00 86 02/10/17 08:47 98 Nasal Cannula 3.00 02/10/17 08:00 100 02/10/17 07:15 93 02/10/17 07:15 98 Nasal Cannula 3.00 02/10/17 07:15 98.5 113 20 99/63 98 02/10/17 06:00 82 02/10/17 05:00 94 02/10/17 04:00 98 02/10/17 04:00 98.5 84 18 99/63 99 02/10/17 03:00 95 02/10/17 02:39 98 Nasal Cannula 3.00 02/10/17 02:00 92 02/10/17 01:00 92 02/10/17 00:00 98 02/10/17 00:00 98.4 90 18 117/81 99 02/09/17 23:00 106 02/09/17 22:00 122 02/09/17 21:00 118 02/09/17 20:00 106 02/09/17 20:00 98.7 108 18 123/71 96 I/O 02/09/17 02/09/17 02/09/17 02/10/17 02/10/17 02/10/17 07:00 15:00 23:00 07:00 15:00 23:00 Intake Total 240 ml 480 ml 480 ml 840 ml Output Total 500 ml 250 ml 1290 ml 300 ml Balance -260 ml 230 ml -810 ml 540 ml Intake Oral 240 ml 480 ml 480 ml 840 ml Output Urine Total 500 ml 250 ml 1290 ml 300 ml # Voids 1 Result Diagram: 02/08/17 0410 02/09/17 0739 Objective Remarks GENERAL: WBWN WM, NAD SKIN: Warm and dry. HEAD: Normocephalic. EYES: No scleral icterus. No injection or drainage. NECK: Supple, trachea midline. No JVD or lymphadenopathy. CARDIOVASCULAR: Regular rate and rhythm without murmurs, gallops, or rubs. RESPIRATORY: Breath sounds equal bilaterally. No accessory muscle use. GASTROINTESTINAL: Abdomen soft, non-tender, nondistended. MUSCULOSKELETAL: No cyanosis, or edema. BACK: Nontender without obvious deformity. No CVA tenderness. A/P Assessment and Plan Pulm. Fibrosis AF, s/p ablation DM HTN S/P I&D left leg PLAN Supplement 02 Aerosol nebs PRN monitor BS MILLI [facility]land at [facility] for AV node ablation in AM Ralph Orta MD Feb 10, 2017 19:56
[2017-02-10] MEDS: ATORVASTATIN 10 MG TAB PO SCH (21:07)
[2017-02-10] MEDS: INSULIN DETEMIR 100 UNITS/ML VIAL SQ SCH (21:09)
[2017-02-10] MEDS: TAMSULOSIN HCL 0.4 MG CAP PO SCH (21:12)
[2017-02-11] VITALS (32 sets, daily range): BP systolic 108–128; BP diastolic 56–77; PULSE 56–100; RESP 16–20; TEMP 97.1–98.9; O2SAT 95–99
[2017-02-11] MEDS: LEVOTHYROXINE SODIUM 25 MCG TAB PO SCH (04:50)
[2017-02-11] MEDS: INSULIN ASPART SUPPLEMENTAL SCALE SQ SCH ×4 (06:04→21:00)
[2017-02-11] MEDS: RESP: ALBUTEROL 1.25 MG/3 ML NEB (SCH) NEB (08:00)
[2017-02-11] MEDS: DABIGATRAN ETEXILATE 150 MG CAP PO SCH ×2 (09:00→21:00)
[2017-02-11] MEDS: VALSARTAN 160 MG TAB PO SCH (09:32)
[2017-02-11] MEDS: ASPIRIN 81 MG CHEW TAB CHEW SCH (09:32)
[2017-02-11] MEDS: CLOPIDOGREL 75 MG TAB PO SCH (09:32)
[2017-02-11] MEDS: FUROSEMIDE 40 MG TAB PO SCH (09:32)
[2017-02-11] MEDS: METOPROLOL TARTRATE 50 MG TAB PO SCH (09:32)
[2017-02-11] MEDS: PANTOPRAZOLE SOD 40 MG DELAYED RELEASE TAB PO SCH (09:32)
[2017-02-11] MEDS: CHOLECALCIFEROL (VIT D3) 5000 UNIT CAP PO SCH (09:32)
[2017-02-11] MEDS: CEFUROXIME AXETIL 500 MG TAB PO SCH ×2 (09:32→22:38)
[2017-02-11] MEDS: METOLAZONE 2.5 MG TAB PO SCH (09:32)
[2017-02-11] MEDS: DOCUSATE SODIUM 50 MG/SENNA 8.6 MG TAB PO SCH ×2 (09:32→22:38)
[2017-02-11] MEDS: DOFETILIDE 250 MCG CAP PO SCH (09:33)
[2017-02-11] MEDS: SODIUM CHLORIDE 0.9% FLUSH 10 ML FLUSH IV FLUSH SCH ×2 (09:33→22:39)
[2017-02-11] MEDS: INSULIN DETEMIR 100 UNITS/ML VIAL SQ SCH ×2 (09:51→21:00)
--- NOTE | 2017-02-11 12:16 | HHI.PR ---
Subjective Remarks resting comfortably with no distress. no chest pain or sob. no new complaints. Objective Vitals Vital Signs Date Time Temp Pulse Resp B/P Pulse Ox O2 Delivery O2 Flow Rate FiO2 02/11/17 10:24 97 Nasal Cannula 3.00 02/11/17 10:00 63 02/11/17 09:01 61 02/11/17 08:00 61 02/11/17 07:15 63 02/11/17 07:15 98.9 65 18 113/68 97 02/11/17 07:15 97 Nasal Cannula 2.00 02/11/17 06:00 60 02/11/17 05:00 64 02/11/17 04:00 98.1 62 18 117/68 98 02/11/17 04:00 69 02/11/17 03:00 64 02/11/17 02:00 58 02/11/17 01:00 60 02/11/17 00:00 97.6 69 16 122/56 98 02/11/17 00:00 68 02/10/17 23:00 82 02/10/17 22:00 82 02/10/17 21:00 80 02/10/17 20:00 81 02/10/17 20:00 98.0 70 20 118/68 97 02/10/17 20:00 97 Nasal Cannula 2.00 02/10/17 19:00 76 02/10/17 18:00 72 02/10/17 17:00 68 02/10/17 16:00 89 02/10/17 15:04 100 02/10/17 15:04 98.2 111 18 112/60 96 02/10/17 14:00 96 02/10/17 13:00 94 I/O 02/10/17 02/10/17 02/10/17 02/11/17 02/11/17 02/11/17 07:00 15:00 23:00 07:00 15:00 23:00 Intake Total 480 ml 840 ml 240 ml Output Total 1290 ml 300 ml 575 ml Balance -810 ml 540 ml -335 ml Intake Oral 480 ml 840 ml 240 ml Output Urine Total 1290 ml 300 ml 575 ml # Voids 1 # Bowel Movements 0 Result Diagram: 02/08/17 0410 02/09/17 0739 Objective Remarks GENERAL: elderly male, in no apparent distress-however with mild sob CARDIOVASCULAR: Regular rate and irregular rhythm without murmurs, gallops, or rubs. RESPIRATORY: Clear to auscultation. Breath sounds equal bilaterally. No wheezes , rales, or rhonchi. GASTROINTESTINAL: Abdomen soft, non-tender, nondistended. Normal, active bowel sounds MUSCULOSKELETAL: Extremities without clubbing, cyanosis, or edema. NEURO: Alert & Oriented x4 to person, place, time, situation. Moves all ext x4 Medications and IVs Current Medications Sodium Chloride (NS Flush) 2 ml UNSCH PRN IV FLUSH FLUSH AFTER USING IV ACCESS ; Start 02/07/17 at 18:00 Sodium Chloride (NS Flush) 2 ml BID IV FLUSH Last administered on 02/11/17 09: 33; Start 02/07/17 at 21:00 Acetaminophen (Tylenol) 650 mg Q4H PRN PO TEMP > 100.4; Start 02/07/17 at 18:00 Ondansetron HCl (Zofran Inj) 4 mg Q6H PRN IVP NAUSEA OR VOMITING; Start at 18:00; Stop 02/07/17 at 19:59; Status DC Temazepam (Restoril) 15 mg HS PRN PO INSOMNIA; Start 02/07/17 at 18:00 Naloxone HCl (Narcan Inj) 0.4 mg UNSCH PRN IV SEE LABEL COMMENTS; Start at 18:00 Senna/Docusate Sodium (Carina-Colace) 1 tab BID PO Last administered on 02/11/17 09:32; Start 02/07/17 at 21:00 Magnesium Hydroxide (Milk Of Magnesia Liq) 30 ml Q12H PRN PO MILD - MODERATE CONSTIPATION; Start 02/07/17 at 18:00 Sennosides (Senokot) 17.2 mg Q12H PRN PO MODERATE - SEVERE CONSTIPATION; Start 02/07/17 at 18:00 Bisacodyl (Dulcolax Supp) 10 mg DAILY PRN RECTAL SEVERE CONSITIPATION; Start at 18:00 Lactulose (Lactulose Liq) 30 ml DAILY PRN PO SEVERE CONSITIPATION; Start at 18:00 Dextrose (D50w (Vial) Inj) 50 ml UNSCH PRN IV HYPOGLYCEMIA-SEE COMMENTS; Start 02/07/17 at 18:30 Glucagon (Glucagon Inj) 1 mg UNSCH PRN OTHER HYPOGLYCEMIA-SEE COMMENTS; Start 02/07/17 at 18:30 Insulin Aspart (NovoLOG SUPPLEMENTAL SCALE) 1 ACHS SLIDING SCALE SQ Last administered on 02/11/17 06:04; Start 02/07/17 at 21:00 Aspirin (Aspirin Chew) 81 mg DAILY CHEW Last administered on 02/11/17 09:32; Start 02/08/17 at 09:00 Atorvastatin Calcium (Lipitor) 10 mg HS PO Last administered on 02/10/17 21:07 ; Start 02/07/17 at 21:00 Cefuroxime Axetil (Ceftin) 500 mg BID PO Last administered on 02/11/17 09:32; Start 02/07/17 at 21:00 Cholecalciferol (Vitamin D3) 5,000 units DAILY PO Last administered on 09:32; Start 02/08/17 at 09:00 Clopidogrel Bisulfate (Plavix) 75 mg DAILY PO ; Start 02/08/17 at 09:00; Stop at 09:00; Status DC Dabigatran (Pradaxa) 150 mg BID PO ; Start 02/07/17 at 21:00; Stop 02/08/17 at 19:36; Status DC Docusate Sodium (Colace) 100 mg BID PRN PO CONSTIPATION; Start 02/07/17 at 19: 45; Stop 02/09/17 at 15:24; Status DC Dofetilide (Tikosyn) 125 mcg BID PO Last administered on 02/08/17 08:45; Start 02/07/17 at 21:00; Stop 02/08/17 at 11:27; Status DC Furosemide (Lasix) 40 mg DAILY PO Last administered on 02/11/17 09:32; Start at 09:00 Levothyroxine Sodium (Synthroid) 25 mcg DAILY@06 PO Last administered on 04:50; Start 02/08/17 at 06:00 Lorazepam (Ativan) 0.5 mg Q8H PRN PO ANXIETY; Start 02/07/17 at 19:45 Metolazone (Zaroxolyn) 2.5 mg DAILY PO Last administered on 02/11/17 09:32; Start 02/08/17 at 09:00 Metoprolol Tartrate (Lopressor) 50 mg BID PO Last administered on 02/11/17 09: 32; Start 02/07/17 at 21:00 Ondansetron HCl (Zofran Inj) 4 mg Q4H PRN IV PUSH N/V; Start 02/07/17 at 19:45 Pantoprazole Sodium (Protonix) 40 mg DAILY PO Last administered on 02/11/17 09: 32; Start 02/08/17 at 09:00 Tamsulosin HCl (Flomax) 0.4 mg HS PO Last administered on 02/10/17 21:12; Start 02/07/17 at 21:00 Albuterol Sulfate (Albuterol Neb) 1.25 mg TID NEB NEB Last administered on 20:25; Start 02/07/17 at 20:00 Valsartan (Diovan) 320 mg DAILY PO Last administered on 02/11/17 09:32; Start 02/08/17 at 09:00 Clopidogrel Bisulfate (Plavix) 75 mg DAILY PO Last administered on 02/11/17 09: 32; Start 02/08/17 at 09:00 Patient Own Medication PT OWN MED: TIKOSYN (DOFETILI... BID PO ; Start 02/08/17 at 21:00; Status Cancel Insulin Detemir (Levemir Inj) 10 units BID SQ Last administered on 02/09/17 21: 12; Start 02/08/17 at 10:30; Stop 02/10/17 at 09:13; Status DC Dofetilide 250 mcg 250 mcg BID PO ; Start 02/08/17 at 21:00; Stop 02/08/17 at 21 :00; Status DC Heparin Sodium/ Sodium Chloride 500 ml @ As Directed STK-MED ONCE .ROUTE Last administered on 02/08/17 17:13; Start 02/08/17 at 17:13; Stop 02/08/17 at 17:14 ; Status DC Levofloxacin/ Dextrose 100 ml @ As Directed STK-MED ONCE IV Last administered on 02/08/17 17:25; Start 02/08/17 at 17:13; Stop 02/08/17 at 17:14; Status DC Heparin Sodium/ Dextrose (Heparin-D5W Inj) 250 ml @ As Directed STK-MED ONCE .ROUTE ; Start 02/08/17 at 17:21; Stop 02/08/17 at 17:22; Status DC Isoproterenol HCl (Isuprel Inj) 1 mg STK-MED ONCE .ROUTE ; Start 02/08/17 at 17: 21; Stop 02/08/17 at 17:22; Status DC Protamine Sulfate (Protamine Sulfate Inj) 50 mg STK-MED ONCE .ROUTE ; Start at 17:21; Stop 02/08/17 at 17:22; Status DC Heparin Sodium (Porcine) (Heparin Inj) 20,000 units STK-MED ONCE .ROUTE ; Start 02/08/17 at 17:21; Stop 02/08/17 at 17:22; Status DC Lorazepam (Ativan Inj) 0.5 mg UNSCH PRN IV ANXIETY; Start 02/08/17 at 19:45; Stop 02/09/17 at 19:44; Status DC Atropine Sulfate 0.5 mg 0.5 mg UNSCH PRN IV VAGAL REPONSE; Start 02/08/17 at 19 :45 Sodium Chloride (NS 250 ml Inj) 250 ml @ 500 mls/hr ONCE PRN IV VAGAL REPONSE ; Start 02/08/17 at 19:45; Stop 02/09/17 at 19:44; Status DC Metoclopramide HCl (Reglan Inj) 10 mg Q4H PRN IV NAUSEA; Start 02/08/17 at 19: 45 Ondansetron HCl (Zofran Inj) 4 mg Q4H PRN IV NAUSEA; Start 02/08/17 at 19:45 Lidocaine HCl (Xylocaine 1% Inj (50 ml)) 10 ml UNSCH PRN INFIL SHEATH REMOVAL; Start 02/08/17 at 19:45; Stop 02/09/17 at 19:44; Status DC Bacitracin (Bacitracin Oint Packet) 0.9 gm ONCE ONCE TOP ; Start 02/08/17 at 19 :45; Stop 02/08/17 at 20:43; Status DC Dabigatran (Pradaxa) 150 mg BID PO Last administered on 02/10/17 10:21; Start 02/09/17 at 21:00 Dofetilide (Tikosyn) 500 mcg BID PO Last administered on 02/11/17 09:33; Start 02/08/17 at 21:00 Fentanyl Citrate (fentaNYL INJ) 250 mcg STK-MED ONCE .ROUTE ; Start 02/08/17 at 19:38; Stop 02/08/17 at 19:39; Status DC Albuterol Sulfate (Albuterol Concentrated Neb) 2.5 mg STK-MED ONCE .ROUTE ; Start 02/08/17 at 20:12; Stop 02/08/17 at 20:13; Status DC Fentanyl Citrate (fentaNYL INJ) 100 mcg STK-MED ONCE .ROUTE ; Start 02/08/17 at 20:31; Stop 02/08/17 at 20:32; Status DC Sugammadex Sodium (Bridion Inj) 200 mg STK-MED ONCE IV PUSH ; Start 02/08/17 at 20:31; Stop 02/08/17 at 20:32; Status DC Miscellaneous Information ALL NURSING DEPARTME... UNSCH PRN .XX SEE LABEL COMMENTS; Start 02/08/17 at 20:00; Stop 02/09/17 at 19:59; Status DC Propofol (Diprivan 200 Mg/20 ml Inj) 200 mg STK-MED ONCE IV ; Start 02/08/17 at 16:51; Stop 02/09/17 at 10:34; Status DC Sodium Chloride (NS 500 ml Inj) 500 ml STK-MED ONCE IV ; Start 02/08/17 at 16:51 ; Stop 02/09/17 at 10:34; Status DC Insulin Detemir (Levemir Inj) 12 units BID SQ Last administered on 02/11/17 09: 51; Start 02/10/17 at 21:00 A/P Assessment and Plan A/P Atrial fibrillation with RVR -s/p ablation- still in atrial fibrillation -on Tikosyn and Pradaxa - continuous cardiac telemetry - cardiology following and plan for possible AV yasmeen ablation today. Abscess/Cellulitis of the left leg - s/p I&D at [facility] and completed course of IV antibiotics -improving. -continue with daily wound changes. consulted wound care. - Continue on po antibiotics Ceftin 500mg po BID chronic respiratory failure on 2 L of oxygen at home -due to pulmonary fibrosis -Expenditure Requisition Clerk consult appreciated. DM - On SSI -At home patient takes Lantus 40 units every morning. -Blood sugars running in the 200s.continue Levemir 12 units twice a day. -continue with SSI -will continue to monitor and adjust the regimen as needed. Hypothyroidism/cardiomyopathy/HTN/HLP/NSVTs/p AICD -continue home medication. DVT prophylaxis -Patient is on Pradaxa. Discharge Planning when cleared by Cardiology. Winter Gaines MD Feb 11, 2017 12:16 Winter Gaines MD Feb 11, 2017 12:16
--- NOTE | 2017-02-11 15:53 | EKG ---
Date Performed: 02/10/2017 Time Performed: 22:12:00 PTAGE: 86 years EKG: Atrial fibrillation Left axis deviation IV conduction defect Extensive ST-T changes may be due to myocardial ischemia When compared to previous tracing, the patient is no longer in Rapid ventr icular rate. Abnormal ECG PREVIOUS TRACING : 02/09/2017 05.42 DOCTOR: Maria Luisa Baca Interpretating Date/Time 02/11/2017 15:51:12
[2017-02-11] MEDS ORDERED: HEPARIN-NS/PF INJ 500 ML ONE (17:29)
[2017-02-11] MEDS ORDERED: MIDAZOLAM HCL 2 MG/2 ML VIAL ONE (17:49)
[2017-02-11] MEDS ORDERED: ISOPROTERENOL HCL 1 MG/5 ML AMP ONE (17:49)
[2017-02-11] MEDS ORDERED: LIDOCAINE HCL 1% 50 ML VIAL INFIL PRN (19:00)
[2017-02-11] MEDS ORDERED: ONDANSETRON HCL 4 MG/2 ML VIAL IV PRN (19:00)
[2017-02-11] MEDS ORDERED: SODIUM CHLOR 0.9% 250 ML INJ 250 ML IV PRN (19:00)
[2017-02-11] MEDS ORDERED: ATROPINE SULFATE 1 MG/ML VIAL IV PRN (19:00)
[2017-02-11] MEDS ORDERED: BACITRACIN OINT 0.9 GM PKT TOP ONE (19:00)
[2017-02-11] MEDS ORDERED: METOCLOPRAMIDE HCL 10 MG/2 ML VIAL IV PRN (19:00)
[2017-02-11] MEDS ORDERED: LORazepam 2 MG/ML VIAL IV PRN (19:00)
--- NOTE | 2017-02-11 19:11 | CATHPROC ---
[employer] HIS Report Study Information Study Number Admission Scheduled Start Study Start [id number] Feb 07 2017 5:57PM 02/11/2017 Feb 11 2017 1:23PM [facility] Electrophysiology Study Admit Source Facility Department Other [facility] - Activities Attendant Physician and Clinical Staff Initial [facility] Pharmacist Ayala Reynolds,[place] Other Anesthesia, MACHINE MOLDER Recorder Lolis Jones,RN Scrub Jerry Castelan,RT(R) Procedures Performed Procedure Location (Site) Vessel Name Ablation Procedure RF Ablation Isthmus Other Equipment Time Medical Device Description Size Mfg Part Number Used/Scraped BIOSENSE VÁZQUEZ CATHETER, CELSIUS DS, 8MM, F [id number] 17:36 FR 7 Used INC. TYPE QUAD *[id number] 13:42 [employer] PACK, CCL CUSTOM * Used *[id number] 13:42 [employer] PACER MONTOYA, LIMB * 2530 *[id number] Used [id number] 13:42 [employer] MEDICAL BLANKET,WARM AIR CCL * Used *[id number] 17:36 [employer] MEDICAL CATHETER, JSN, QUAD FR 5 Used *[id number] 17:36 [employer] MEDICAL CATHETER, JSN, QUAD FR 5 Used *[id number] 17:35 [employer] MEDICAL SHEATH, EPS, FR5 FAST CATH FR 5 Used *[id number] 17:35 [employer] MEDICAL SHEATH, EPS, FR5 FAST CATH FR 5 Used *[id number] 17:36 [employer] MEDICAL SHEATH, EPS, FR6 FAST CATH FR [address] [id number] Used 17:36 [employer] MEDICAL SHEATH, EPS, FR8 FAST CATH FR 8 [id number] Used History: Allergies Allergy Reaction No Known Allergies Amiodarone Pulmonary Fibrosis History: Risk Factors Hypertension Dyslipidemia Previous Heart Failure Yes Yes Yes Prior PCI Prior PCIDate Yes 07/12/2013 Diabetes Yes Labs Hgb (g/dl) Hct (%) RBC (MIL/MM3) WBC (l/cumm) Platelets (thousands) 11.60-17.00 35.00-51.00 4.00-5.90 4.00-11.00 150.00-450.00 9.0 29 3 5.7 174 Glucose (mg/dl) BUN (mg/dl) Creatinine (mg/dl) BUN:Creatinine (1:x) 74.00-106.00 7.00-18.00 0.50-1.30 10.00-20.00 265 20 1.4 14.3 Na (meq/l) K (meq/l) 136.00-145.00 3.50-5.10 132 4.4 INR (PTT:PT) 0.90-1.10 1.1 Medication Medication Total Dose (Bolus/Oral) Medication Total Dosage/Unit 1% XYLOCAINE 20 mL METOPROLOL 5 units/hr Medications (Bolus/Oral) Medication Time Given Dosage/Unit Administered By Reason 1% XYLOCAINE 02/11/2017 6:10:00 PM 20 mL Deisy Alcantara 20 mL 1% XYLOCAINE given in lab by Deisy Alcantara in Right Groin via Subcutaneous. METOPROLOL 02/11/2017 6:48:00 PM 5 units/hr Anesthesia, MACHINE MOLDER As per physicians verbal order 5 units/hr METOPROLOL given in lab by Anesthesia, MACHINE MOLDER via Peripheral IV. Pump/Drip Flow = 0 ml/hr us ing [Solution Name]. Ordered by Deisy Alcantara. Reason: As per physicians verbal order. mutiple pvcs Medication (Drip) Medication Time Given Dosage/Unit Concentration/Unit Diluent (ml) Solution ISUPREL 02/11/2017 6:39:00 PM 10 mcg/min 1 mg 250 NaCl .9 10 mcg/min ISUPREL given in lab by Deisy Alcantara via Peripheral IV. Pump/Drip Flow = 150 ml/hr using NaCl .9 with a concentration of 1 mg in 250 ml. Initial Case Assessment Cardiovascular HR Rhythm NIBP Chest Pain 91 af 154/85 0 Edema Present Skin color Skin None Normal Warm Dry Circulatory - Right Pulses Dorsalis Pedis 3 Scale (0,1,2,3,4,d) Circulatory - Left Pulses Dorsalis Pedis 3 Scale (0,1,2,3,4,d) Circulatory - Lower Extremities Color Lower Right Color Lower Left Normal Normal Neurological State Oriented to time-place- Alert Moves all extremities person Respiration - General Respiration Rate SpO2 (%) O2 (lpm) (B/min) 21 100 4 Final Case Assessment Cardiovascular HR Rhythm NIBP 80 vp digital marketing 100/60 Edema Present Skin color Skin None Normal Warm Circulatory - Right Pulses Dorsalis Pedis 3 Scale (0,1,2,3,4,d) Circulatory - Left Pulses Dorsalis Pedis 3 Scale (0,1,2,3,4,d) Circulatory - Lower Extremities Color Lower Right Color Lower Left Normal Normal Neurological State Oriented to time-place- Lethargic Moves all extremities person Respiration - General Respiration Rate SpO2 (%) O2 (lpm) (B/min) 18 99 4 Chronological Log Time Study Chronological Log 17:14:06 Patient arrived via Bed. 17:14:07 Patient Name, D.O.B, / Armband Verified By R.N. 17:14:08 Consent signed by the physician and the patient and verified by the Activities Attendant staff. 17:14:09 Pre-op and post- op instructions given; patient acknowledges understanding of instructions. 17:14:09 Verbal Stimulation=2 Physical Stimulation=2 Airway=2 Respiration=2 TOTAL=8. (0=absent, 1=li mited, 2=present) 17:14:19 Patient has been NPO for More than 6Hrs. 17:14:20 Skin Breakdown- left leg wound 17:14:29 Patient Warmer Placed on the Table. 17:14:30 Disposable Defibrillator Pads Placed On Patient. 17:14:31 Carolyn [employer] Protected 17:14:33 A # 20 IV was noted in the Forearm (right). Grade = 0 0.9ns kvo 17:14:34 A # 20 IV was noted in the Forearm (left). Grade = 0 0.9ns kvo 17:14:35 History and physical on the chart or being dictated. 17:30:20 Anesthesia at bedside. Assumes care of patient. Milton Assessment: Initial Case, HR=91 BPM, Rhythm=af, TUGG=216/85 mmhg, Chest Pain=0, Edema=None, Col or=Normal, Skin = Warm, Dry Right Pulses: Shai Ped=3 Left Pulses: Shai Ped=3 17:32:35 Lower Right Extremities: Color=Normal Lower Left Extremities: Color=Normal Neurological: State=Alert, Ox3, COLLAZO Respiration: Resp=21 B/min, CxM9=688 %, O2=4 lpm 17:33:31 Table restraints applied according to hospital policy 17:36:41 Tachy therapy disabled. VVI40. Per MD order 17:40:18 Reference ECG taken Bilateral groins prepped with 2% chlorhexidine, and with a 3 min. waiting time. 17:40:47 Bilateral groins noted with ecchymosis. 17:48:01 MD paged 17:48:53 MD responded 18:06:16 MD arrived. Time Out. Correct patient, procedure, procedure equipment, site and side verified with physicia n present. Time 18:09:00 concurred by MD, individual staff and MACHINE MOLDER. Time Out #2 - Consents verified, patient in correct position, all results are labled and displa yed, safety precautions 18:09:19 taken, antibiotics administered. Time out concurred by MD, individual staff and MACHINE MOLDER in procedu re 18:09:28 Case Start 18:10:00 20 mL 1% XYLOCAINE given in lab by Deisy Alcantara in Right Groin via Subcutaneous. 18:10:29 Vascular access was obtained in the Fem Vein (right). 18:10:31 Vascular access was obtained in the Fem Vein (right). 18:10:38 Vascular access was obtained in the Fem Vein (right). 18:10:42 Vascular access was obtained in the Fem Vein (right). 18:10:44 A SHEATH, EPS, FR5 FAST CATH FR 5 was advanced into the Fem Vein (right) using the Modified Seldinger technique. 18:10:59 A SHEATH, EPS, FR6 FAST CATH FR 6 was advanced into the Fem Vein (right) using the Modified Seldinger technique. 18:11:03 A SHEATH, EPS, FR8 FAST CATH FR 8 was advanced into the Fem Vein (right) using the Modified Seldinger technique. A CATHETER, JSN, QUAD FR 5 was advanced vis Fem Vein (right) and placed in the RVA. Placement w as visually 18:12:06 confirmed under fluoroscopy. A CATHETER, JSN, QUAD FR 5 was advanced vis Fem Vein (right) and placed in the HIS. Placement w as visually 18:13:02 confirmed under fluoroscopy. 18:13:27 EPS in progress A CATHETER, CELSIUS DS, 8MM, F TYPE QUAD FR 7 was advanced vis Fem Vein (right) and placed in t he HRA. 18:15:34 Placement was visually confirmed under fluoroscopy. 18:16:00 RF Ablation of the Isthmus with a CATHETER, CELSIUS DS, 8MM, F TYPE QUAD FR 7. 10 mcg/min ISUPREL given in lab by Deisy Alcantara via Peripheral IV. Pump/Drip Flow = 150 ml/hr using NaCl .9 with a 18:39:00 concentration of 1 mg in 250 ml. 18:45:24 Isuprel off 5 units/hr METOPROLOL given in lab by SELVIN Yanez via Peripheral IV. Pump/Drip Flow = 0 ml /hr using [Solution 18:48:00 Name]. Ordered by Deisy Alcantara. Reason: As per physicians verbal order. mutiple pvcs 18:50:28 Catheter(s) removed without difficulty under fluoro 18:51:23 Tachy therapy reenabled. [id number] per MD order. 18:52:12 Sheaths removed; pressure applied to access site by DB. 18:53:02 No case complications noted. 18:53:03 Cine recording checked. 18:53:14 CICU called. Spoke to Leigh 18:53:41 Bedside Report will be given. 19:06:42 Case End 19:08:36 Defibrillator and ground pads removed. Skin intact. 19:08:40 Sterile dressing applied to site 19:09:05 Ablation procedure performed: AVN. 19:09:12 EP Procedure was performed. Assessment: Final Case, HR=80 BPM, Rhythm=vp digital marketing, VNTN=095/60 mmhg, Edema=None, Color=Normal, Skin = Warm Right Pulses: Shai Ped=3 Left Pulses: Shai Ped=3 19:09:24 Lower Right Extremities: Color=Normal Lower Left Extremities: Color=Normal Neurological: State=Lethargic, Ox3, COLLAZO Respiration: Resp=18 B/min, SpO2=99 %, O2=4 lpm 19:15:51 Patient moved to [facility] End Study - Contrast Media Used In Study Contrast Total Opened (mL) Total Used (mL) Total Wasted (mL) Omnipaque 0 0 0 End Study - Maximum Contrast Load Max Contrast Load (mL) 305.4 End Study - Radiation Exposure Fluoro Time (minutes) 6.4 End Study - Patient Disposition Complications Transferred To Interventional Outcome No Telemetry Bed successful
--- NOTE | 2017-02-11 19:47 | HHI.PR ---
Subjective Remarks 86 YOWM with PF,AF,DM,HTN had ablation done 02/08 breathing better no CP Objective Vital Signs Vital Signs Date Time Temp Pulse Resp B/P Pulse Ox O2 Delivery O2 Flow Rate FiO2 02/11/17 17:18 97 Nasal Cannula 3.00 02/11/17 17:00 94 02/11/17 16:00 100 02/11/17 15:00 68 02/11/17 15:00 97.6 62 18 128/64 98 02/11/17 14:05 62 02/11/17 13:00 61 02/11/17 12:00 70 02/11/17 11:00 61 02/11/17 11:00 97.6 56 20 128/64 99 02/11/17 10:24 97 Nasal Cannula 3.00 02/11/17 10:00 63 02/11/17 09:01 61 02/11/17 08:00 61 02/11/17 07:15 63 02/11/17 07:15 98.9 65 18 113/68 97 02/11/17 07:15 97 Nasal Cannula 2.00 02/11/17 06:00 60 02/11/17 05:00 64 02/11/17 04:00 98.1 62 18 117/68 98 02/11/17 04:00 69 02/11/17 03:00 64 02/11/17 02:00 58 02/11/17 01:00 60 02/11/17 00:00 97.6 69 16 122/56 98 02/11/17 00:00 68 02/10/17 23:00 82 02/10/17 22:00 82 02/10/17 21:00 80 02/10/17 20:00 81 02/10/17 20:00 98.0 70 20 118/68 97 02/10/17 20:00 97 Nasal Cannula 2.00 I/O 02/10/17 02/10/17 02/10/17 02/11/17 02/11/17 02/11/17 07:00 15:00 23:00 07:00 15:00 23:00 Intake Total 480 ml 840 ml 240 ml Output Total 1290 ml 300 ml 575 ml 250 ml Balance -810 ml 540 ml -335 ml -250 ml Intake Oral 480 ml 840 ml 240 ml Output Urine Total 1290 ml 300 ml 575 ml 250 ml # Voids 1 3 # Bowel Movements 0 Result Diagram: 02/08/17 0410 02/09/17 0739 Objective Remarks GENERAL: WBWN WM, NAD SKIN: Warm and dry. HEAD: Normocephalic. EYES: No scleral icterus. No injection or drainage. NECK: Supple, trachea midline. No JVD or lymphadenopathy. CARDIOVASCULAR: Regular rate and rhythm without murmurs, gallops, or rubs. RESPIRATORY: Breath sounds equal bilaterally. No accessory muscle use. GASTROINTESTINAL: Abdomen soft, non-tender, nondistended. MUSCULOSKELETAL: No cyanosis, or edema. BACK: Nontender without obvious deformity. No CVA tenderness. A/P Assessment and Plan Pulm. Fibrosis AF, s/p ablation DM HTN S/P I&D left leg PLAN Supplement 02 Aerosol nebs PRN monitor BS DW family at Ralph Orta MD Feb 11, 2017 19:47
[2017-02-11] MEDS: TAMSULOSIN HCL 0.4 MG CAP PO SCH (22:38)
[2017-02-11] MEDS: ATORVASTATIN 10 MG TAB PO SCH (22:39)
[2017-02-12] VITALS (20 sets, daily range): BP systolic 96–125; BP diastolic 54–79; PULSE 75–89; RESP 14–18; TEMP 96.8–97.4; O2SAT 94–100
[2017-02-12] MEDS: INSULIN ASPART SUPPLEMENTAL SCALE SQ SCH ×2 (06:25→11:00)
[2017-02-12] MEDS: LEVOTHYROXINE SODIUM 25 MCG TAB PO SCH (06:25)
[2017-02-12] MEDS: INSULIN DETEMIR 100 UNITS/ML VIAL SQ SCH (09:00)
[2017-02-12] MEDS: DABIGATRAN ETEXILATE 150 MG CAP PO SCH (09:11)
[2017-02-12] MEDS: CLOPIDOGREL 75 MG TAB PO SCH (09:12)
[2017-02-12] MEDS: PANTOPRAZOLE SOD 40 MG DELAYED RELEASE TAB PO SCH (09:12)
[2017-02-12] MEDS: CHOLECALCIFEROL (VIT D3) 5000 UNIT CAP PO SCH (09:12)
[2017-02-12] MEDS: CEFUROXIME AXETIL 500 MG TAB PO SCH (09:12)
[2017-02-12] MEDS: METOLAZONE 2.5 MG TAB PO SCH (09:13)
[2017-02-12] MEDS: FUROSEMIDE 40 MG TAB PO SCH (09:13)
[2017-02-12] MEDS: DOCUSATE SODIUM 50 MG/SENNA 8.6 MG TAB PO SCH (09:13)
[2017-02-12] MEDS: VALSARTAN 160 MG TAB PO SCH (09:13)
[2017-02-12] MEDS: SODIUM CHLORIDE 0.9% FLUSH 10 ML FLUSH IV FLUSH SCH (09:13)
[2017-02-12] MEDS: ASPIRIN 81 MG CHEW TAB CHEW SCH (09:13)
--- NOTE | 2017-02-12 11:00 | HHI.PR ---
Subjective Remarks in no acute distress. denies chest pain or sob. no new complaints. d/w the RN. Objective Vitals Vital Signs Date Time Temp Pulse Resp B/P Pulse Ox O2 Delivery O2 Flow Rate FiO2 02/12/17 10:16 98 Nasal Cannula 2.00 02/12/17 07:31 96.8 84 14 117/66 100 02/12/17 07:31 84 02/12/17 06:00 82 02/12/17 05:00 84 02/12/17 04:00 97.1 82 14 115/70 99 02/12/17 04:00 80 02/12/17 03:00 80 02/12/17 02:30 87 96/66 98 02/12/17 02:00 80 02/12/17 01:30 81 106/65 97 02/12/17 01:00 80 02/12/17 00:15 85 121/69 98 02/12/17 00:00 97.4 80 16 117/79 98 02/12/17 00:00 83 02/11/17 23:15 82 126/75 98 02/11/17 23:00 80 02/11/17 22:15 83 121/77 98 02/11/17 22:00 80 02/11/17 21:45 83 109/65 99 02/11/17 21:15 80 113/66 99 02/11/17 21:00 80 02/11/17 20:45 80 108/62 96 02/11/17 20:15 85 117/70 95 02/11/17 20:00 82 111/71 96 02/11/17 20:00 97.1 82 16 118/69 98 02/11/17 20:00 81 02/11/17 19:45 82 118/69 99 02/11/17 19:30 81 108/68 99 02/11/17 19:00 98 Nasal Cannula 2.00 02/11/17 17:18 97 Nasal Cannula 3.00 02/11/17 17:00 94 02/11/17 16:00 100 02/11/17 15:00 68 02/11/17 15:00 97.6 62 18 128/64 98 02/11/17 14:05 62 02/11/17 13:00 61 02/11/17 12:00 70 02/11/17 11:00 61 02/11/17 11:00 97.6 56 20 128/64 99 I/O 02/11/17 02/11/17 02/11/17 02/12/17 02/12/17 02/12/17 07:00 15:00 23:00 07:00 15:00 23:00 Intake Total 240 ml 1480 ml Output Total 575 ml 250 ml 1300 ml Balance -335 ml -250 ml 180 ml Intake Oral 240 ml 480 ml IV Total 1000 ml Output Urine Total 575 ml 250 ml 1300 ml # Voids 3 1 # Bowel Movements 0 Result Diagram: 02/08/17 0410 02/09/17 0739 Objective Remarks GENERAL: elderly male, in no apparent distress-however with mild sob CARDIOVASCULAR: Regular rate and irregular rhythm without murmurs, gallops, or rubs. RESPIRATORY: Clear to auscultation. Breath sounds equal bilaterally. No wheezes , rales, or rhonchi. GASTROINTESTINAL: Abdomen soft, non-tender, nondistended. Normal, active bowel sounds MUSCULOSKELETAL: Extremities without clubbing, cyanosis, or edema. NEURO: Alert & Oriented x4 to person, place, time, situation. Moves all ext x4 Procedures ablation Medications and IVs Current Medications Sodium Chloride (NS Flush) 2 ml UNSCH PRN IV FLUSH FLUSH AFTER USING IV ACCESS ; Start 02/07/17 at 18:00 Sodium Chloride (NS Flush) 2 ml BID IV FLUSH Last administered on 02/12/17 09: 13; Start 02/07/17 at 21:00 Acetaminophen (Tylenol) 650 mg Q4H PRN PO TEMP > 100.4; Start 02/07/17 at 18:00 Ondansetron HCl (Zofran Inj) 4 mg Q6H PRN IVP NAUSEA OR VOMITING; Start at 18:00; Stop 02/07/17 at 19:59; Status DC Temazepam (Restoril) 15 mg HS PRN PO INSOMNIA Last administered on 02/12/17 00: 18; Start 02/07/17 at 18:00 Naloxone HCl (Narcan Inj) 0.4 mg UNSCH PRN IV SEE LABEL COMMENTS; Start at 18:00 Senna/Docusate Sodium (Carina-Colace) 1 tab BID PO Last administered on 02/12/17 09:13; Start 02/07/17 at 21:00 Magnesium Hydroxide (Milk Of Magnesia Liq) 30 ml Q12H PRN PO MILD - MODERATE CONSTIPATION; Start 02/07/17 at 18:00 Sennosides (Senokot) 17.2 mg Q12H PRN PO MODERATE - SEVERE CONSTIPATION; Start 02/07/17 at 18:00 Bisacodyl (Dulcolax Supp) 10 mg DAILY PRN RECTAL SEVERE CONSITIPATION; Start at 18:00 Lactulose (Lactulose Liq) 30 ml DAILY PRN PO SEVERE CONSITIPATION; Start at 18:00 Dextrose (D50w (Vial) Inj) 50 ml UNSCH PRN IV HYPOGLYCEMIA-SEE COMMENTS; Start 02/07/17 at 18:30 Glucagon (Glucagon Inj) 1 mg UNSCH PRN OTHER HYPOGLYCEMIA-SEE COMMENTS; Start 02/07/17 at 18:30 Insulin Aspart (NovoLOG SUPPLEMENTAL SCALE) 1 ACHS SLIDING SCALE SQ Last administered on 02/11/17 06:04; Start 02/07/17 at 21:00 Aspirin (Aspirin Chew) 81 mg DAILY CHEW Last administered on 02/12/17 09:13; Start 02/08/17 at 09:00 Atorvastatin Calcium (Lipitor) 10 mg HS PO Last administered on 02/11/17 22:39 ; Start 02/07/17 at 21:00 Cefuroxime Axetil (Ceftin) 500 mg BID PO Last administered on 02/12/17 09:12; Start 02/07/17 at 21:00 Cholecalciferol (Vitamin D3) 5,000 units DAILY PO Last administered on 09:12; Start 02/08/17 at 09:00 Clopidogrel Bisulfate (Plavix) 75 mg DAILY PO ; Start 02/08/17 at 09:00; Stop at 09:00; Status DC Dabigatran (Pradaxa) 150 mg BID PO ; Start 02/07/17 at 21:00; Stop 02/08/17 at 19:36; Status DC Docusate Sodium (Colace) 100 mg BID PRN PO CONSTIPATION; Start 02/07/17 at 19: 45; Stop 02/09/17 at 15:24; Status DC Dofetilide (Tikosyn) 125 mcg BID PO Last administered on 02/08/17 08:45; Start 02/07/17 at 21:00; Stop 02/08/17 at 11:27; Status DC Furosemide (Lasix) 40 mg DAILY PO Last administered on 02/12/17 09:13; Start at 09:00 Levothyroxine Sodium (Synthroid) 25 mcg DAILY@06 PO Last administered on 06:25; Start 02/08/17 at 06:00 Lorazepam (Ativan) 0.5 mg Q8H PRN PO ANXIETY; Start 02/07/17 at 19:45 Metolazone (Zaroxolyn) 2.5 mg DAILY PO Last administered on 02/12/17 09:13; Start 02/08/17 at 09:00 Metoprolol Tartrate (Lopressor) 50 mg BID PO Last administered on 02/11/17 09: 32; Start 02/07/17 at 21:00; Stop 02/11/17 at 18:57; Status DC Ondansetron HCl (Zofran Inj) 4 mg Q4H PRN IV PUSH N/V; Start 02/07/17 at 19:45 Pantoprazole Sodium (Protonix) 40 mg DAILY PO Last administered on 02/12/17 09: 12; Start 02/08/17 at 09:00 Tamsulosin HCl (Flomax) 0.4 mg HS PO Last administered on 02/11/17 22:38; Start 02/07/17 at 21:00 Albuterol Sulfate (Albuterol Neb) 1.25 mg TID NEB NEB Last administered on 20:25; Start 02/07/17 at 20:00; Stop 02/11/17 at 20:00; Status DC Valsartan (Diovan) 320 mg DAILY PO Last administered on 02/12/17 09:13; Start 02/08/17 at 09:00 Clopidogrel Bisulfate (Plavix) 75 mg DAILY PO Last administered on 02/12/17 09: 12; Start 02/08/17 at 09:00 Patient Own Medication PT OWN MED: TIKOSYN (DOFETILI... BID PO ; Start 02/08/17 at 21:00; Status Cancel Insulin Detemir (Levemir Inj) 10 units BID SQ Last administered on 02/09/17 21: 12; Start 02/08/17 at 10:30; Stop 02/10/17 at 09:13; Status DC Dofetilide 250 mcg 250 mcg BID PO ; Start 02/08/17 at 21:00; Stop 02/08/17 at 21 :00; Status DC Heparin Sodium/ Sodium Chloride 500 ml @ As Directed STK-MED ONCE .ROUTE Last administered on 02/08/17 17:13; Start 02/08/17 at 17:13; Stop 02/08/17 at 17:14 ; Status DC Levofloxacin/ Dextrose 100 ml @ As Directed STK-MED ONCE IV Last administered on 02/08/17 17:25; Start 02/08/17 at 17:13; Stop 02/08/17 at 17:14; Status DC Heparin Sodium/ Dextrose (Heparin-D5W Inj) 250 ml @ As Directed STK-MED ONCE .ROUTE ; Start 02/08/17 at 17:21; Stop 02/08/17 at 17:22; Status DC Isoproterenol HCl (Isuprel Inj) 1 mg STK-MED ONCE .ROUTE ; Start 02/08/17 at 17: 21; Stop 02/08/17 at 17:22; Status DC Protamine Sulfate (Protamine Sulfate Inj) 50 mg STK-MED ONCE .ROUTE ; Start at 17:21; Stop 02/08/17 at 17:22; Status DC Heparin Sodium (Porcine) (Heparin Inj) 20,000 units STK-MED ONCE .ROUTE ; Start 02/08/17 at 17:21; Stop 02/08/17 at 17:22; Status DC Lorazepam (Ativan Inj) 0.5 mg UNSCH PRN IV ANXIETY; Start 02/08/17 at 19:45; Stop 02/09/17 at 19:44; Status DC Atropine Sulfate 0.5 mg 0.5 mg UNSCH PRN IV VAGAL REPONSE; Start 02/08/17 at 19 :45 Sodium Chloride (NS 250 ml Inj) 250 ml @ 500 mls/hr ONCE PRN IV VAGAL REPONSE ; Start 02/08/17 at 19:45; Stop 02/09/17 at 19:44; Status DC Metoclopramide HCl (Reglan Inj) 10 mg Q4H PRN IV NAUSEA; Start 02/08/17 at 19: 45 Ondansetron HCl (Zofran Inj) 4 mg Q4H PRN IV NAUSEA; Start 02/08/17 at 19:45; Stop 02/11/17 at 19:48; Status DC Lidocaine HCl (Xylocaine 1% Inj (50 ml)) 10 ml UNSCH PRN INFIL SHEATH REMOVAL; Start 02/08/17 at 19:45; Stop 02/09/17 at 19:44; Status DC Bacitracin (Bacitracin Oint Packet) 0.9 gm ONCE ONCE TOP ; Start 02/08/17 at 19 :45; Stop 02/08/17 at 20:43; Status DC Dabigatran (Pradaxa) 150 mg BID PO Last administered on 02/12/17 09:11; Start 02/09/17 at 21:00 Dofetilide (Tikosyn) 500 mcg BID PO Last administered on 02/11/17 09:33; Start 02/08/17 at 21:00; Stop 02/11/17 at 18:57; Status DC Fentanyl Citrate (fentaNYL INJ) 250 mcg STK-MED ONCE .ROUTE ; Start 02/08/17 at 19:38; Stop 02/08/17 at 19:39; Status DC Albuterol Sulfate (Albuterol Concentrated Neb) 2.5 mg STK-MED ONCE .ROUTE ; Start 02/08/17 at 20:12; Stop 02/08/17 at 20:13; Status DC Fentanyl Citrate (fentaNYL INJ) 100 mcg STK-MED ONCE .ROUTE ; Start 02/08/17 at 20:31; Stop 02/08/17 at 20:32; Status DC Sugammadex Sodium (Bridion Inj) 200 mg STK-MED ONCE IV PUSH ; Start 02/08/17 at 20:31; Stop 02/08/17 at 20:32; Status DC Miscellaneous Information ALL NURSING DEPARTME... UNSCH PRN .XX SEE LABEL COMMENTS; Start 02/08/17 at 20:00; Stop 02/09/17 at 19:59; Status DC Propofol (Diprivan 200 Mg/20 ml Inj) 200 mg STK-MED ONCE IV ; Start 02/08/17 at 16:51; Stop 02/09/17 at 10:34; Status DC Sodium Chloride (NS 500 ml Inj) 500 ml STK-MED ONCE IV ; Start 02/08/17 at 16:51 ; Stop 02/09/17 at 10:34; Status DC Insulin Detemir 12 units 12 units BID SQ Last administered on 02/11/17 21:00; Start 02/10/17 at 21:00 Heparin Sodium/ Sodium Chloride (Heparin-NS/Pf Inj) 500 ml @ As Directed STK- MED ONCE .ROUTE Last administered on 02/11/17 17:29; Start 02/11/17 at 17:29; Stop 02/11/17 at 17:30; Status DC Isoproterenol HCl (Isuprel Inj) 1 mg STK-MED ONCE .ROUTE ; Start 02/11/17 at 17: 49; Stop 02/11/17 at 17:50; Status DC Fentanyl Citrate (fentaNYL INJ) 100 mcg STK-MED ONCE .ROUTE ; Start 02/11/17 at 17:49; Stop 02/11/17 at 17:50; Status DC Midazolam HCl (Versed Inj) 2 mg STK-MED ONCE .ROUTE ; Start 02/11/17 at 17:49; Stop 02/11/17 at 17:50; Status DC Lorazepam (Ativan Inj) 0.5 mg UNSCH PRN IV ANXIETY; Start 02/11/17 at 19:00; Stop 02/12/17 at 18:59 Atropine Sulfate 0.5 mg 0.5 mg UNSCH PRN IV VAGAL REPONSE; Start 02/11/17 at 19: 00; Stop 02/11/17 at 19:48; Status DC Sodium Chloride (NS 250 ml Inj) 250 ml @ 500 mls/hr ONCE PRN IV VAGAL REPONSE ; Start 02/11/17 at 19:00; Stop 02/12/17 at 18:59 Metoclopramide HCl (Reglan Inj) 10 mg Q4H PRN IV NAUSEA; Start 02/11/17 at 19:00 ; Stop 02/11/17 at 19:48; Status DC Ondansetron HCl (Zofran Inj) 4 mg Q4H PRN IV NAUSEA; Start 02/11/17 at 19:00; Stop 02/11/17 at 19:48; Status DC Lidocaine HCl (Xylocaine 1% Inj (50 ml)) 10 ml UNSCH PRN INFIL SHEATH REMOVAL; Start 02/11/17 at 19:00; Stop 02/12/17 at 18:59 Bacitracin (Bacitracin Oint Packet) 0.9 gm ONCE ONCE TOP ; Start 02/11/17 at 19: 00; Stop 02/11/17 at 19:44; Status DC A/P Assessment and Plan A/P Atrial fibrillation with RVR -s/p ablation- -on Pradaxa- Tikosyn was dc'ed. - continuous cardiac telemetry - awaiting cardiology follow-up and recommendations. Abscess/Cellulitis of the left leg - s/p I&D at [facility] and completed course of IV antibiotics -improving. -continue with daily wound changes. consulted wound care. - Continue on po antibiotics Ceftin 500mg po BID chronic respiratory failure on 2 L of oxygen at home -due to pulmonary fibrosis -Acetylene Burner following. DM - On SSI -At home patient takes Lantus 40 units every morning. continue Levemir 12 units twice a day. -continue with SSI Hypothyroidism/cardiomyopathy/HTN/HLP/NSVTs/p AICD -continue home medication. DVT prophylaxis -Patient is on Pradaxa. Discharge Planning when cleared by Cardiology. case management for [facility]. Winter Gaines MD Feb 12, 2017 11:00
--- NOTE | 2017-02-12 11:03 | HHI.FF ---
Face to Face Verification Diagnosis: (1) Atrial fibrillation Physical Therapy Order: Evaluate and Treat Home Health Nursing Order: Medical education Signs/symptoms of disease process Medication education-adverse effect Nursing assessment with vital signs I have seen patient Delano Gillespie on 02/12/17. My clinical findings support the need for the requested home health care services because: Ltd mobility - disease progression I certify that my clinical findings support that this patient is homebound because: Unsteady gait/balance Poor cardiac reserve Winter Gaines MD Feb 12, 2017 11:03
--- NOTE | 2017-02-12 11:08 | EKG ---
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
--- NOTE | 2017-02-12 11:57 | EKG ---
Date Performed: 02/12/2017 Time Performed: 06:03:44 PTAGE: 86 years EKG: Demand pacing Incomplete LBBB LVH with secondary repolarization abnormality Marked precordi al ST depression Extensive ST-T changes may be due to hypertrophy and/or ischemia Abnormal ECG PREVIOUS TRACING : 02/11/2017 11.13 Compared to the prior study, demand pacing is now present. ST segment changes in the anterior leads are now present, consider anterior ischemia. DOCTOR: Braulio Marte Interpretating Date/Time 02/12/2017 11:58:13
--- NOTE | 2017-02-12 14:42 | HHI.PR ---
Subjective Remarks Feeling better Objective Vital Signs Date Time Temp Pulse Resp B/P Pulse Ox O2 Delivery O2 Flow Rate FiO2 02/12/17 14:06 80 02/12/17 13:01 80 02/12/17 12:12 84 02/12/17 11:54 97.2 82 18 125/74 100 02/12/17 11:54 82 02/12/17 10:36 82 02/12/17 10:16 98 Nasal Cannula 2.00 02/12/17 09:53 89 02/12/17 08:02 75 02/12/17 07:31 100 Nasal Cannula 3.00 02/12/17 07:31 96.8 84 14 117/66 100 02/12/17 07:31 84 02/12/17 06:00 82 02/12/17 05:00 84 02/12/17 04:00 97.1 82 14 115/70 99 02/12/17 04:00 80 02/12/17 03:00 80 02/12/17 02:30 87 96/66 98 02/12/17 02:00 80 02/12/17 01:30 81 106/65 97 02/12/17 01:00 80 02/12/17 00:15 85 121/69 98 02/12/17 00:00 97.4 80 16 117/79 98 02/12/17 00:00 83 02/11/17 23:15 82 126/75 98 02/11/17 23:00 80 02/11/17 22:15 83 121/77 98 02/11/17 22:00 80 02/11/17 21:45 83 109/65 99 02/11/17 21:15 80 113/66 99 02/11/17 21:00 80 02/11/17 20:45 80 108/62 96 02/11/17 20:15 85 117/70 95 02/11/17 20:00 82 111/71 96 02/11/17 20:00 97.1 82 16 118/69 98 02/11/17 20:00 81 02/11/17 19:45 82 118/69 99 02/11/17 19:30 81 108/68 99 02/11/17 19:00 98 Nasal Cannula 2.00 02/11/17 17:18 97 Nasal Cannula 3.00 02/11/17 17:00 94 02/11/17 16:00 100 02/11/17 15:00 68 02/11/17 15:00 97.6 62 18 128/64 98 I/O 02/11/17 02/11/17 02/11/17 02/12/17 02/12/17 02/12/17 07:00 15:00 23:00 07:00 15:00 23:00 Intake Total 240 ml 1480 ml Output Total 575 ml 250 ml 1300 ml Balance -335 ml -250 ml 180 ml Intake Oral 240 ml 480 ml IV Total 1000 ml Output Urine Total 575 ml 250 ml 1300 ml # Voids 3 1 # Bowel Movements 0 Result Diagram: 02/08/17 0410 02/09/17 0739 Imaging Alert, fully oriented Lungs: ventilated Heart: S1, S2 regular, no gallop Abdomen: soft, no mass Ext: no edema Active Medications Atropine Sulfate 0.5 mg 0.5 mg UNSCH PRN IV; Start 02/11/17 at 19:00; Stop at 19:48; Status DC Bacitracin (Bacitracin Oint Packet) 0.9 gm ONCE ONCE TOP; Start 02/11/17 at 19: 00; Stop 02/11/17 at 19:44; Status DC Fentanyl Citrate (fentaNYL INJ) 100 mcg STK-MED ONCE .ROUTE; Start 02/11/17 at 17 :49; Stop 02/11/17 at 17:50; Status DC Heparin Sodium/ Sodium Chloride (Heparin-NS/Pf Inj) 500 ml @ As Directed STK- MED ONCE .ROUTE Last administered on 02/11/17t 17:29; Admin Dose 1,000 MLS/HR; Start 02/11/17 at 17:29; Stop 02/11/17 at 17:30; Status DC Isoproterenol HCl (Isuprel Inj) 1 mg STK-MED ONCE .ROUTE; Start 02/11/17 at 17:49 ; Stop 02/11/17 at 17:50; Status DC Lidocaine HCl (Xylocaine 1% Inj (50 ml)) 10 ml UNSCH PRN INFIL; Start 02/11/17 at 19:00; Stop 02/12/17 at 18:59 Lorazepam (Ativan Inj) 0.5 mg UNSCH PRN IV; Start 02/11/17 at 19:00; Stop at 18:59 Metoclopramide HCl (Reglan Inj) 10 mg Q4H PRN IV; Start 02/11/17 at 19:00; Stop 02/11/17 at 19:48; Status DC Midazolam HCl (Versed Inj) 2 mg STK-MED ONCE .ROUTE; Start 02/11/17 at 17:49; Stop 02/11/17 at 17:50; Status DC Ondansetron HCl (Zofran Inj) 4 mg Q4H PRN IV; Start 02/11/17 at 19:00; Stop 02/11 at 19:48; Status DC Sodium Chloride (NS 250 ml Inj) 250 ml @ 500 mls/hr ONCE PRN IV; Start at 19:00; Stop 02/12/17 at 18:59 Assessment and Plan Problem List: (1) Atrial fibrillation Status: Acute Plan: SP AV node ablation. V pacing Some PVCs Doing better. Tikosyn DC Can be DH Follow up March 03 (2) ICD (implantable cardioverter-defibrillator) in place Status: Acute Plan: Device well functioning Problem Qualifiers (1) Atrial fibrillation: Qualified Code: I48.0 - Paroxysmal atrial fibrillation Deisy Alcantara MD Feb 12, 2017 14:42
--- NOTE | 2017-02-12 15:01 | HHI.DS ---
Discharge Summary Admission Date Feb 07, 2017 at 17:57 Discharge Date: Feb 12, 2017 Admitting Diagnosis atrial fibrillation. (1) Atrial fibrillation ICD Code: I48.91 Diagnosis: Principal Procedures ablation Brief History - From Admission Written by Mounika Nieves, acting as scribe for Dr. Martínez on 02/07/17 at 18:28. This is an 86 yr old male with a PMHX significant for atrial fibrillation s/p AICD, on anticoagulation, hypertension, DM, BPH and hyperlipidemia who was recently admitted at [facility] with several days of left lower extremity swelling. He denied any subjective fever, chills, nausea or vomiting. He was found to have an abscess and underwent an I&D followed by IV antibiotics and was later transitioned to oral antibiotics. Cultures grew E Coli. He was subsequently found to be in atrial fibrillation with RVR and started on Cardizem drip. Patient was seen in consultation by Cardiology. Cardiology recommended possible ablation and patient has been transferred to [place] for ablation. Patient is asymptomatic presently, he denies any chest pain, shortness of breathing, lightheadedness dizziness. Patient niece who is a nurse stated that patient has always been asymptomatic when his atrial separation with RVR. She also stated that his left lower extremity wound looks a lot better. spoke to Dr. Farmer patient's communication technician over the phone and he stated that patient is scheduled for an ablation tomorrow afternoon and to continue his Plavix and tonight's dose of pradaxa but to hold morning dose. All other review of symptoms reviewed and negative. CBC/BMP: 02/08/17 0410 02/09/17 0739 PE at Discharge GENERAL: elderly male, in no apparent distress-however with mild sob CARDIOVASCULAR: Regular rate and irregular rhythm without murmurs, gallops, or rubs. RESPIRATORY: Clear to auscultation. Breath sounds equal bilaterally. No wheezes , rales, or rhonchi. GASTROINTESTINAL: Abdomen soft, non-tender, nondistended. Normal, active bowel sounds MUSCULOSKELETAL: Extremities without clubbing, cyanosis, or edema. NEURO: Alert & Oriented x4 to person, place, time, situation. Moves all ext x4 Hospital Course Atrial fibrillation with RVR -s/p ablation- -on Pradaxa- Tikosin was dc'ed. - continuous cardiac telemetry - f/u with cardiology as outpatient. Abscess/Cellulitis of the left leg - s/p I&D at [facility] and completed course of IV antibiotics -improving. -continue with daily wound changes. consulted wound care. - Continue on po antibiotics Ceftin 500mg po BID chronic respiratory failure on 2 L of oxygen at home -due to pulmonary fibrosis -Printer Assistant following. DM - On SSI -At home patient takes Lantus 40 units every morning. continue Levemir 12 units twice a day. -continue with SSI Hypothyroidism/cardiomyopathy/HTN/HLP/NSVTs/p AICD -continue home medication. DVT prophylaxis -Patient is on Pradaxa. Pt Condition on Discharge: Good Discharge Disposition: Disch w/ Home Health Serv Discharge Time: <= 30 minutes Discharge Instructions DIET: Follow Instructions for: Heart Healthy Diet, Diabetic Diet Activities you can perform: Regular-No Restrictions Follow up Referrals: Cardiology PCP Follow-up Continued Medications: Acetaminophen (Tylenol) 325 Mg Tab 650 MG PO Q6H PRN FEVER Ref 0 TAB Aspirin (Aspirin) 81 Mg Chew 81 MG CHEW DAILY Ref 0 TAB Atorvastatin (Lipitor) 10 Mg Tab 10 MG PO HS Cholesterol Management #30 Ref 0 TAB Cefuroxime (Cefuroxime) 500 Mg Tab 500 MG PO BID Infection #2 Ref 0 TAB Cholecalciferol (Vitamin D3 Maximum Strength) 5,000 Unit Cap 5000 UNITS PO DAILY Nutritional Supplement #30 Ref 0 CAP Clopidogrel (Plavix) 75 Mg Tab 75 MG PO DAILY Blood Clot Prevention #30 Ref 0 TAB Dabigatran (Pradaxa) 150 Mg Cap 150 MG PO BID Blood Clot Prevention #60 Ref 0 CAP Docusate Sodium (Docusate Sodium) 100 Mg Cap 100 MG PO BID PRN CONSTIPATION #60 Ref 0 CAP Furosemide (Furosemide) 40 Mg Tab 40 MG PO DAILY #30 Ref 0 TAB Insulin Aspart Inj (Novolog Inj) 1,000 Unit/10 Ml Vial 0 SQ DIRECTED Sliding Scale as directed. Blood Sugar Management #10 Ref 0 ML Insulin Glargine Inj (Lantus Solostar Pen Inj) 300 Unit/3 Ml Pen 1 UNITS SQ Blood Sugar Management Ref 0 PEN Levalbuterol Neb (Levalbuterol Neb) 0.63 Mg/3 Ml Neb 0.63 MG INH TID NEB Breathing Treatment #120 Ref 0 NEBULE Levothyroxine (Levothyroxine) 25 Mcg Tab 25 MCG PO DAILY Thyroid #30 Ref 0 TAB Lorazepam (Lorazepam) 0.5 Mg Tab 0.5 MG PO Q8H PRN ANXIETY Ref 0 TAB Metolazone (Metolazone) 2.5 Mg Tab 2.5 MG PO DAILY #30 Ref 0 TAB Metoprolol Tartrate (Metoprolol Tartrate) 50 Mg Tab 50 MG PO BID #60 Ref 0 TAB Multiple Vitamin (Multi Vitamin Daily) 1 Tab Tab DAILY Ondansetron Inj (Ondansetron Inj) 4 Mg/2 Ml Inj 4 MG IV PUSH Q4HR PRN prn Ref 0 VIAL Pantoprazole (Protonix) 40 Mg Tab 40 MG PO DAILY Reflux #30 Ref 0 TAB Saccharomyces Boulardii (Digestive Probiotic) 250 Mg Capsule BID Tamsulosin (Tamsulosin) 0.4 Mg Cap 0.4 MG PO HS Manage Prostate Problems #30 Ref 0 CAP Ubiquinone (Ultra Coq10) 75 Mg Cap 300 MG DAILY Discontinued Medications: Dofetilide (Tikosyn) 125 Mcg Cap 125 MCG PO BID For Creatinine Clearance 20-39 mL/min Regulate Heart Beat #60 Ref 0 CAP Valsartan-Hydrochlorothiazide (Diovan Hct) 320-25 Mg Tab 1 TAB PO DAILY Blood Pressure Management #30 Ref 0 TAB Winter Gaines MD Feb 12, 2017 15:01
--- NOTE | 2017-02-12 17:50 | HHI.PR ---
Subjective Remarks 86 YOWM with PF,AF,DM,HTN had ablation done 02/08 breathing better no CP no new complaint Objective Vital Signs Vital Signs Date Time Temp Pulse Resp B/P Pulse Ox O2 Delivery O2 Flow Rate FiO2 02/12/17 15:11 84 02/12/17 15:11 97.4 84 18 112/54 94 02/12/17 14:06 80 02/12/17 13:01 80 02/12/17 12:12 84 02/12/17 11:54 97.2 82 18 125/74 100 02/12/17 11:54 82 02/12/17 10:36 82 02/12/17 10:16 98 Nasal Cannula 2.00 02/12/17 09:53 89 02/12/17 08:02 75 02/12/17 07:31 100 Nasal Cannula 3.00 02/12/17 07:31 96.8 84 14 117/66 100 02/12/17 07:31 84 02/12/17 06:00 82 02/12/17 05:00 84 02/12/17 04:00 97.1 82 14 115/70 99 02/12/17 04:00 80 02/12/17 03:00 80 02/12/17 02:30 87 96/66 98 02/12/17 02:00 80 02/12/17 01:30 81 106/65 97 02/12/17 01:00 80 02/12/17 00:15 85 121/69 98 02/12/17 00:00 97.4 80 16 117/79 98 02/12/17 00:00 83 02/11/17 23:15 82 126/75 98 02/11/17 23:00 80 02/11/17 22:15 83 121/77 98 02/11/17 22:00 80 02/11/17 21:45 83 109/65 99 02/11/17 21:15 80 113/66 99 02/11/17 21:00 80 02/11/17 20:45 80 108/62 96 02/11/17 20:15 85 117/70 95 02/11/17 20:00 82 111/71 96 02/11/17 20:00 97.1 82 16 118/69 98 02/11/17 20:00 81 02/11/17 19:45 82 118/69 99 02/11/17 19:30 81 108/68 99 02/11/17 19:00 98 Nasal Cannula 2.00 I/O 02/11/17 02/11/17 02/11/17 02/12/17 02/12/17 02/12/17 06:59 14:59 22:59 06:59 14:59 22:59 Intake Total 240 ml 1480 ml Output Total 575 ml 250 ml 1300 ml Balance -335 ml -250 ml 180 ml Intake Oral 240 ml 480 ml IV Total 1000 ml Output Urine Total 575 ml 250 ml 1300 ml # Voids 3 1 # Bowel Movements 0 Result Diagram: 02/08/17 0410 02/09/17 0739 Objective Remarks GENERAL: WBWN WM, NAD SKIN: Warm and dry. HEAD: Normocephalic. EYES: No scleral icterus. No injection or drainage. NECK: Supple, trachea midline. No JVD or lymphadenopathy. CARDIOVASCULAR: Regular rate and rhythm without murmurs, gallops, or rubs. RESPIRATORY: Breath sounds equal bilaterally. No accessory muscle use. GASTROINTESTINAL: Abdomen soft, non-tender, nondistended. MUSCULOSKELETAL: No cyanosis, or edema. BACK: Nontender without obvious deformity. No CVA tenderness. A/P Assessment and Plan Pulm. Fibrosis AF, s/p ablation DM HTN S/P I&D left leg PLAN Supplement 02 Aerosol nebs PRN monitor BS DW family at BS Stable from pulm standpoint Ralph Orta MD Feb 12, 2017 17:49
== END 2017-02-12 16:07 | disposition home health service (06) | DRG 274 ==
LOC: HCIS 17:40 → OBSVTOIN 17:57
PROVIDERS: ADMIT Internal Medicine; ATTEND Internal Medicine
PROC: B244ZZ4 Ultrasonography of Right Heart, Transesophageal (ICD-10-PCS; 2017-02-08)
PROC: 02K83ZZ Map Conduction Mechanism, Percutaneous Approach (ICD-10-PCS; 2017-02-08)
PROC: 4A023FZ Measurement of Cardiac Rhythm, Percutaneous Approach (ICD-10-PCS; 2017-02-08)
PROC: 4A0234Z Measurement of Cardiac Electrical Activity, Percutaneous Approach (ICD-10-PCS; 2017-02-08)
PROC: 02583ZZ Destruction of Conduction Mechanism, Percutaneous Approach (ICD-10-PCS; principal; 2017-02-08 16:00)
PROC: 4A023FZ Measurement of Cardiac Rhythm, Percutaneous Approach (ICD-10-PCS; 2017-02-11)
PROC: 02583ZZ Destruction of Conduction Mechanism, Percutaneous Approach (ICD-10-PCS; 2017-02-11)
PROC: 4A0234Z Measurement of Cardiac Electrical Activity, Percutaneous Approach (ICD-10-PCS; 2017-02-11)
DX: I48.0 Paroxysmal atrial fibrillation (principal); J96.10 Chronic respiratory failure, unspecified whether with hypoxia or hypercapnia; I42.9 Cardiomyopathy, unspecified; E11.22 Type 2 diabetes mellitus with diabetic chronic kidney disease; I13.0 Hypertensive heart and chronic kidney disease with heart failure and stage 1 through stage 4 chronic kidney disease, or unspecified chronic kidney disease; L03.116 Cellulitis of left lower limb; I50.9 Heart failure, unspecified; N18.3 Chronic kidney disease, stage 3 (moderate); I49.3 Ventricular premature depolarization; J84.10 Pulmonary fibrosis, unspecified; I25.10 Atherosclerotic heart disease of native coronary artery without angina pectoris; N40.0 Benign prostatic hyperplasia without lower urinary tract symptoms; E03.9 Hypothyroidism, unspecified; E78.5 Hyperlipidemia, unspecified; Z66 Do not resuscitate; Z79.01 Long term (current) use of anticoagulants; Z79.4 Long term (current) use of insulin; Z87.891 Personal history of nicotine dependence; Z95.5 Presence of coronary angioplasty implant and graft; Z95.810 Presence of automatic (implantable) cardiac defibrillator; Z99.81 Dependence on supplemental oxygen
CPT/HCPCS: 76937; 80048; 80053; 82948; 83735; 85002; 85025; 85027; 85610; 85730; 92960; 93005; 93312; 93320; 93325; 93613; 93620; 93623; 93650; 93656; 93662; C1730; C1731; C1732; C1759; C1766; C2630; J1644; J1815; J1956; J2250; J2720; J3010; J7040; J7611; J7613